=== PATIENT | male | born 1975 | race Caucasian/White ===

== ENCOUNTER 2017-10-22 12:32 | Emergency (ER) | payer BC ==
[2017-10-22 13:01] LABS: Appearance,Urine Clear (Clear); Bilirubin,Urine Negative (Negative); Blood,Urine Negative (Negative); Color,Urine Light Yellow; Glucose,Urine (UA) Negative (Negative); Ketones,Urine Negative (Negative); Leukocyte Esterase,Urine Negative (Negative); Nitrite,Urine Negative (Negative); Protein,Urine Negative (Negative); Specific Gravity,Urine 1.009 (1.001-1.035); Urobilinogen,Urine <2.0 mg/dL (<2.0)
[2017-10-22] MEDS ORDERED: SODIUM CHLORIDE 0.9% 1,000 ML IV STA (13:08)
[2017-10-22] MEDS ORDERED: KETOROLAC 30 MG/ML 1 ML VIAL IVP STA (13:08)
[2017-10-22] MEDS ORDERED: ONDANSETRON 4 MG/2 ML VIAL IVP STA (13:08)
--- NOTE | 2017-10-22 13:14 | ED ---
General Adult HPI <Daniel Chaves - Last Filed: 10/22/17 15:01> - General Source: patient, family, RN notes reviewed Mode of arrival: ambulatory Limitations: no limitations <Carmen Goldstein - Last Filed: 10/22/17 15:22> - General Chief complaint: Abdominal Pain Stated complaint: Abd Pain Time Seen by Provider: 10/22/17 12:52 - History of Present Illness Initial comments: 42-year-old male presents to the emergency department with a chief complaint of right-sided flank pain that radiated to the groin. This started on Wednesday. He saw his family care doctor Wednesday. She stated continue to watch it due to his long history of kidney stones however it seems to be continuing. He is nauseated there is been no vomiting. There's been no fever chills. She just continues to have the discomfort so he thought that he should be evaluated. He states he has had a little dysuria and frequency. He denies any blood in the urine. Patient denies any recent fever, chills, shortness of breath, chest pain , back pain, vomiting, numbness or tingling, constipation or diarrhea, headaches or visual changes, or any other current symptoms. (Carmen Goldstein) - Related Data Home Medications Medication Instructions Recorded Confirmed Allopurinol [Zyloprim] 100 mg PO DAILY 10/22/17 10/22/17 Teajobdrlk-VCM-Imcanqz-Codeine 1 cap PO Q4H PRN 10/22/17 10/22/17 [Fiorinal w/Cod 23-961-12-30MG] Calcitriol [Rocaltrol] 0.25 mcg PO MOWEFR 10/22/17 10/22/17 Diazepam [Valium] 5 mg PO BID 10/22/17 10/22/17 Ergocalciferol [Vitamin D2] 50,000 unit PO Q7D 10/22/17 10/22/17 Gemfibrozil [Lopid] 600 mg PO AC-BID 10/22/17 10/22/17 HYDROcodone/APAP 7.5-325MG [[place] 1 tab PO Q6HR PRN 10/22/17 10/22/17 7.5-325] Lisinopril [Zestril] 20 mg PO DAILY 10/22/17 10/22/17 Metoprolol Tartrate [Lopressor] 100 mg PO BID 10/22/17 10/22/17 Rosuvastatin [Crestor] 10 mg PO DAILY 10/22/17 10/22/17 Verapamil Sr [Isoptin Sr] 120 mg PO DAILY 10/22/17 10/22/17 Previous Rx's Medication Instructions Recorded Hydrocodone/Acetaminophen [[place] 1 each PO Q6HR PRN #20 tab 10/22/17 5-325] Ketorolac [Toradol] 10 mg PO Q6HR #20 tab 10/22/17 Ondansetron Odt [Zofran ODT] 4 mg PO Q8HR PRN #20 tab 10/22/17 Tamsulosin [Flomax] 0.4 mg PO DAILY #5 cap 10/22/17 Allergies Allergy/AdvReac Type Severity Reaction Status Date / Time loperamide [From Imodium A-D] AdvReac Vomiting Verified 10/22/17 13:12 Review of Systems ROS Other: All systems not noted in ROS Statement are negative. <Daniel Chaves - Last Filed: 10/22/17 15:01> ROS Other: All systems not noted in ROS Statement are negative. <Carmen Goldstein - Last Filed: 10/22/17 15:22> ROS Statement: Those systems with pertinent positive or pertinent negative responses have been documented in the HPI. Past Medical History Past Medical History: Myocardial Infarction ([place]) Additional Past Medical History / Comment(s): kindey stone, PCKD, migraines History of Any Multi-Drug Resistant Organisms: MRSA Date of last positivie culture/infection: 2015 MDRO Source:: right arm Additional Past Surgical History / Comment(s): vastectomy Past Psychological History: No Psychological Hx Reported Smoking Status: Former smoker Past Alcohol Use History: Occasional Past Drug Use History: None Reported <Carmen Goldstein - Last Filed: 10/22/17 15:22> General Exam <Daniel Chaves - Last Filed: 10/22/17 15:01> Limitations: no limitations <Carmen Goldstein - Last Filed: 10/22/17 15:22> - General Exam Comments Initial Comments: General: The patient is awake and alert, in no distress, and does not appear acutely ill. Eye: Pupils are equal, round. Ears, nose, mouth and throat: There are moist mucous membranes. Neck: The neck is supple, there is no tenderness. Cardiovascular: There is a regular rate and rhythm. No murmur, rub or gallop is appreciated. Respiratory: Lungs are clear to auscultation, respirations are non-labored, breath sounds are equal. No wheezes, stridor, rales, or rhonchi. Gastrointestinal: Soft, non-distended, non-tender abdomen without masses or organomegaly noted. There is no rebound or guarding present. No CVA tenderness. Bowel sounds are unremarkable. Back: There is no tenderness to palpation in the midline. There is no obvious deformity. No rashes noted. Musculoskeletal: Normal ROM, no tenderness, There is no pedal edema. There is no calf tenderness or swelling. Sensation intact. Pulses equal bilaterally 2+. Neurological: CN II-XII intact, There are no obvious motor or sensory deficits. Coordination appears grossly intact. Speech is normal. Skin: Skin is warm and dry and no rashes or lesions are noted. Psychiatric: Cooperative, appropriate mood & affect, normal judgment. (Carmen Goldstein) Course <Daniel Chaves - Last Filed: 10/22/17 15:01> <Carmen Goldstein - Last Filed: 10/22/17 15:22> Vital Signs 10/22/17 10/22/17 12:37 15:08 Temperature 98.0 F Pulse Rate 82 76 Respiratory 17 16 Rate Blood Pressure 151/80 119/76 O2 Sat by Pulse 98 96 Oximetry - Reevaluation(s) Reevaluation #1: 10/22/17 15:01 Patient reevaluated by myself, Dr. Chaves. Patient resting comfortably in bed. Patient does have mild tenderness right lower quadrant. Patient questions if he had a fever a few days ago. Patient is tolerating oral intake. Patient states symptoms do feel like previous kidney stone. Case was discussed in detail with Dr. Sarah, who was not concerned for appendicitis based on CT report. Case was also discussed with Dr. Rodriguez who did review computed tomography scan. He does recommend occasions for pain control and will follow- up on Wednesday. He does want urine to be strained. He does want Flomax given. Patient updated. (Daniel Chaves) Medical Decision Making - Lab Data Result diagrams: 10/22/17 13:15 10/22/17 13:15 <Daniel Chaves - Last Filed: 10/22/17 15:01> - Lab Data Result diagrams: 10/22/17 13:15 10/22/17 13:15 <Carmen Goldstein - Last Filed: 10/22/17 15:22> - Medical Decision Making 42-year-old male with a past medical history of kidney stones and polycystic kidney disease presents for right-sided flank pain that radiates into the groin. This time lab work is reviewed. At this time we discussed the case with Dr. Sarah and trena any they agree to outpatient follow-up. Patient has an appointment for Wednesday with Dr. Woods. We will start him on pain medicines and Flomax. We discussed treating the urine. It discuss return parameters all questions. He stated he understood he is given this plan. He will be discharged home. (Carmen Goldstein) - Lab Data Lab Results 10/22/17 10/22/17 10/22/17 Range/Units 12:40 13:15 13:15 WBC 7.7 (3.8-10.6) k/uL RBC 4.07 L (4.30-5.90) m/uL Hgb 12.6 L (13.0-17.5) gm/dL Hct 38.4 L (39.0-53.0) % MCV 94.3 (80.0-100.0) fL MCH 31.0 (25.0-35.0) pg MCHC 32.9 (31.0-37.0) g/dL RDW 14.1 (11.5-15.5) % Plt Count 202 (150-450) k/uL Neutrophils % 78 % Lymphocytes % 12 % Monocytes % 6 % Eosinophils % 2 % Basophils % 0 % Neutrophils # 6.0 (1.3-7.7) k/uL Lymphocytes # 1.0 (1.0-4.8) k/uL Monocytes # 0.4 (0-1.0) k/uL Eosinophils # 0.2 (0-0.7) k/uL Basophils # 0.0 (0-0.2) k/uL Sodium 137 (137-145) mmol/L Potassium 4.6 (3.5-5.1) mmol/L Chloride 100 (98-107) mmol/L Carbon Dioxide 25 (22-30) mmol/L Anion Gap 12 mmol/L BUN 34 H (9-20) mg/dL Creatinine 3.06 H (0.66-1.25) mg/dL Est GFR (MDRD) Af Amer 27 (>60 ml/min/1.73 sqM) Est GFR (MDRD) Non-Af 23 (>60 ml/min/1.73 sqM) Glucose 134 H (74-99) mg/dL Calcium 9.9 (8.4-10.2) mg/dL Total Bilirubin 0.3 (0.2-1.3) mg/dL AST 19 (17-59) U/L ALT 36 (21-72) U/L Alkaline Phosphatase 42 (38-126) U/L Total Protein 6.5 (6.3-8.2) g/dL Albumin 4.0 (3.5-5.0) g/dL Urine Color Light Yellow Urine Appearance Clear (Clear) Urine pH 6.0 (5.0-8.0) Ur Specific Ralls 1.009 (1.001-1.035) Urine Protein Negative (Negative) Urine Glucose (UA) Negative (Negative) Urine Ketones Negative (Negative) Urine Blood Negative (Negative) Urine Nitrite Negative (Negative) Urine Bilirubin Negative (Negative) Urine Urobilinogen <2.0 (<2.0) mg/dL Ur Leukocyte Esterase Negative (Negative) Disposition <Daniel Chaves - Last Filed: 10/22/17 15:01> Time of Disposition: 15:20 <Carmen Goldstein - Last Filed: 10/22/17 15:22> Clinical Impression: Right ureteral calculus, Polycystic kidney disease, Abdominal pain Disposition: HOME SELF-CARE Condition: Stable Instructions: Ureteral Stones (ED) Additional Instructions: Please use medication as discussed. Please follow up with family doctor if symptoms have not improved over the next two days. Please return to the emergency room if your symptoms increase or worsen or for any other concerns. Prescriptions: Hydrocodone/Acetaminophen [[place] 5-325] 1 each PO Q6HR PRN #20 tab PRN Reason: Pain Ketorolac [Toradol] 10 mg PO Q6HR #20 tab Ondansetron Odt [Zofran ODT] 4 mg PO Q8HR PRN #20 tab PRN Reason: Nausea Tamsulosin [Flomax] 0.4 mg PO DAILY #5 cap Referrals: Jamshid Perez MD [Primary Care Provider] - 1-2 days Quinton Capone MD [STAFF PHYSICIAN] - 1-2 days
[2017-10-22 13:28] LABS: Basophils % (A) 0 %; Eosinophils # (A) 0.2 k/uL (0-0.7); Eosinophils % (A) 2 %; HCT 38.4 % (39.0-53.0); HGB 12.6 gm/dL (13.0-17.5); Lymphocytes % (A) 12 %; MCHC 32.9 g/dL (31.0-37.0); MCV 94.3 fL (80.0-100.0); Mean Platelet Volume 7.2; Monocytes # (A) 0.4 k/uL (0-1.0); Monocytes % (A) 6 %; Neutrophils % (A) 78 %; Platelet Count 202 k/uL (150-450); RBC 4.07 m/uL (4.30-5.90); RDW 14.1 % (11.5-15.5); WBC 7.7 k/uL (3.8-10.6)
[2017-10-22 13:35] LABS: Calcium 9.9 mg/dL (8.4-10.2); Potassium 4.6 mmol/L (3.5-5.1); Total Bilirubin 0.3 mg/dL (0.2-1.3); Total Protein 6.5 g/dL (6.3-8.2)
--- NOTE | 2017-10-22 14:16 | CT ---
EXAMINATION TYPE: CT abdomen pelvis wo con DATE OF EXAM: 10/22/2017 COMPARISON: NONE HISTORY: Rt flank pain CT DLP: 1251.0 mGycm Automated exposure control for dose reduction was used. TECHNIQUE: Helical acquisition of images was performed from the lung bases through the pelvis. FINDINGS: LUNG BASES: Subsegmental linear changes are most atelectasis. LIVER/GB: Numerous hypodense lesions within the liver are indeterminate by noncontrast technique but likely related to cysts. PANCREAS: No significant abnormality is seen. SPLEEN: No significant abnormality is seen. ADRENALS: No significant abnormality is seen. KIDNEYS: The kidneys are enlarged bilaterally. There are numerous bilateral masses which are indeterm inate by noncontrast technique. Majority right may represent simple cysts, however, palpable are hype rdense which could represent hemorrhagic cyst. Solid neoplasm is not excluded. There are 3 less than 5 mm scattered calcifications involving the right kidney. Does appear to be mil d periureteral edema on the right and there is a 3 mm distal right ureteral calculus approximately 2 cm above the UVJ. FREE AIR: No free air is visualized URINARY BLADDER: No significant abnormality is seen. ADENOPATHY: None visualized. OSSEOUS STRUCTURES: Degenerative change of the spine noted. There is arthropathy of the hips. BOWEL: Appendix is air-filled and of normal caliber. There is a mild degree of inflammation within t he right lower quadrant which is felt to be more likely related to periureteral edema this is adjacen t to the appendix. Correlate clinically. Changes of diverticulosis of the colon seen.. OTHER: Aorta of normal caliber. IMPRESSION: 1. Kidneys are enlarged bilaterally with multiple indeterminate masses some of which are hyperdense l ikely the basis of polycystic kidney disease. Hyperdense and indeterminate lesions are noted in be co rrelated with ultrasound to exclude solid lesion. 2. There appears be mild right hydronephrosis secondary to a 3 mm distal right ureteral calculus. 3. There is edema within the right lower quadrant suggestive of inflammatory change is most likely is related to periureteral edema from the ureteral calculus but is directly in the region of the append ix. Appendix appears to be air-filled and of normal caliber and periureteral inflammatory changes fav ored over appendicitis but should be correlated clinically for confirmation.
[2017-10-22] MEDS ORDERED: HYDROmorphone 1 MG/ML 1 ML SYRINGE IVP STA (14:53)
[2017-10-22 15:08] VITALS: BP 119/76; PULSE 76; RESP 16
[2017-10-22 15:30] VITALS: TEMP 98.3
== END 2017-10-22 15:44 | disposition home or self-care (01) ==
LOC: EC 12:32
DX: N20.1 Calculus of ureter (principal); Q61.3 Polycystic kidney, unspecified; I25.2 Old myocardial infarction; Z86.14 Personal history of Methicillin resistant Staphylococcus aureus infection; Z87.891 Personal history of nicotine dependence; Z88.8 Allergy status to other drugs, medicaments and biological substances; Z79.899 Other long term (current) drug therapy
CPT/HCPCS: 36415; 80053; 85025; 81003; 87086; 74176; 99284; 96374; 96375 ×2; 96361; J2405; J1885; J1170

== ENCOUNTER → 2023-05-19 | Outpatient (CLI) | payer BC ==
--- NOTE | 2023-05-20 08:34 | MR ---
EXAMINATION TYPE: MR brain wo con DATE OF EXAM: 05/19/2023 COMPARISON: NONE HISTORY: 47-year-old male Z82.49, Family hx aneurysm, hx of kidney disease TECHNIQUE: Multiplanar, multisequence images of the brain and brainstem were acquired without IV con trast. Diffusion weighted imaging is performed. FINDINGS: No evidence for acute infarction, hemorrhage, mass, mass effect, midline shift, herniation, effacemen t of basal cisterns, or extra-axial fluid collection. There is moderate volume loss overlying the bilateral cerebral convexities. T2/FLAIR weighted sequences show no white matter signal abnormality. Major intracranial flow voids are intact. No apparent aneurysm wall assessing the flow voids. Assessm ent limited on this noncontrast, non-angiographic study. Midline structures demonstrate normal morphology. The craniocervical junction is normal. Mild mucosal thickening ethmoid air cells. Globes are intact. IMPRESSION: Moderate cerebral cortical atrophy. Otherwise, no specific abnormality seen. If persistent concern fo r intracranial aneurysm, consider MR angiography [place]. Mild chronic ethmoid sinus disease.
== END | disposition home or self-care (01) ==
LOC: RADMRIMAIN 06:57
PROVIDERS: ATTEND Internal Medicine Nephrology
DX: N26.1 Atrophy of kidney (terminal) (principal); J32.2 Chronic ethmoidal sinusitis; Z82.49 Family history of ischemic heart disease and other diseases of the circulatory system
CPT/HCPCS: 70551

== ENCOUNTER 2025-04-25 12:23 | Inpatient (IN) | payer BC ==
--- NOTE | 2025-04-25 12:52 | ED ---
General Adult HPI - General Chief complaint: Abdominal Pain Stated complaint: Transfer/Diverticulitis Time Seen by Provider: 04/25/25 12:27 Source: patient, EMS Mode of arrival: EMS Limitations: no limitations - History of Present Illness Initial comments: Dictation was produced using upad dictation software. please excuse any grammatical, word or spelling errors. Chief Complaint: 49-year-old male with CKD presents to the ER for diverticulitis History of Present Illness: Patient is a 49-year-old male with history of CKD. He has elevated renal function working with nephrology. Patient states he will be starting peritoneal dialysis soon. Has been having abdominal pain for the last couple days. Went to [place] emergency department where he had CT performed showing diverticulitis with microperforations. Transferred. States that he feels a little sore to his lower abdomen. Denies any fever or constitutional symptoms. The ROS documented in this emergency department record has been reviewed and confirmed by me. Those systems with pertinent positive or negative responses have been documented in the HPI. All other systems are other negative and/or noncontributory. - Related Data Home Medications Medication Instructions Recorded Confirmed Tnxgjfgcgm-FEH-Vxxpbnx-Codeine 1 cap PO Q4H PRN 10/22/17 10/22/17 [Fiorinal w/Cod 82-167-98-30MG] Ergocalciferol [Vitamin D2] 50,000 unit PO Q7D 10/22/17 10/22/17 HYDROcodone/APAP 7.5-325MG [[place] 1 tab PO Q6HR PRN 10/22/17 10/22/17 7.5-325] Metoprolol Tartrate [Lopressor] 100 mg PO BID 10/22/17 10/22/17 Rosuvastatin [Crestor] 10 mg PO DAILY 10/22/17 10/22/17 Verapamil Sr [Isoptin Sr] 120 mg PO DAILY 10/22/17 10/22/17 allopurinoL [Zyloprim] 100 mg PO DAILY 10/22/17 10/22/17 calcitrioL [Rocaltrol] 0.25 mcg PO MOWEFR 10/22/17 10/22/17 diazePAM [Valium] 5 mg PO BID 10/22/17 10/22/17 gemfibroziL [Lopid] 600 mg PO AC-BID 10/22/17 10/22/17 lisinopriL [Zestril] 20 mg PO DAILY 10/22/17 10/22/17 Previous Rx's Medication Instructions Recorded Hydrocodone/Acetaminophen [[place] 1 each PO Q6HR PRN #20 tab 10/22/17 5-325] Ketorolac [Toradol] 10 mg PO Q6HR #20 tab 10/22/17 Ondansetron Odt [Zofran ODT] 4 mg PO Q8HR PRN #20 tab 10/22/17 Tamsulosin [Flomax] 0.4 mg PO DAILY #5 cap 10/22/17 Allergies Allergy/AdvReac Type Severity Reaction Status Date / Time loperamide [From Imodium A-D] AdvReac Vomiting Verified 10/22/17 13:12 Review of Systems ROS Statement: Those systems with pertinent positive or pertinent negative responses have been documented in the HPI. ROS Other: All systems not noted in ROS Statement are negative. Past Medical History Past Medical History: Myocardial Infarction ([place]) Additional Past Medical History / Comment(s): kindey stone, PCKD, migraines History of Any Multi-Drug Resistant Organisms: MRSA Date of last positivie culture/infection: 2015 MDRO Source:: right arm Additional Past Surgical History / Comment(s): vastectomy Past Psychological History: No Psychological Hx Reported Past Alcohol Use History: Occasional Past Drug Use History: None Reported General Exam - General Exam Comments Initial Comments: PHYSICAL EXAM: General Impression: Alert and oriented x3, not in acute distress HEENT: Normocephalic atraumatic, extra-ocular movements intact, pupils equal and reactive to light bilaterally, mucous membranes moist. Cardiovascular: Heart regular rate and rhythm Chest: Able to complete full sentences, no retractions, no tachypnea Abdomen: abdomen soft, non-tender, non-distended, no organomegaly Musculoskeletal: Pulses present and equal in all extremities, no peripheral edema Motor: no focal deficits noted Neurological: CN II-XII grossly intact, no focal motor or sensory deficits noted Skin: Intact with no visualized rashes Psych: Normal affect and mood Limitations: no limitations Course Vital Signs 04/25/25 12:25 Temperature 98.4 F Pulse Rate 85 Respiratory 18 Rate Blood Pressure 152/92 O2 Sat by Pulse 98 Oximetry Medical Decision Making - Medical Decision Making Was pt. sent in by a medical professional or institution (, PA, CASTING HOUSE WORKER, urgent care, hospital, or penitentiary...) When possible be specific @ -Sent as a transfer from [facility] Did you speak to anyone other than the patient for history (EMS, parent, family, police, friend...)? What history was obtained from this source @ -Spoke with transferring physician Did you review nursing and triage notes (agree or disagree)? Why? @ -I reviewed and agree with nursing and triage notes Were old charts reviewed (outside hosp., previous admission, EMS record, old EKG, old radiological studies, urgent care reports/EKG's, penitentiary records)? Report findings @ -No old charts were reviewed Differential Diagnosis (chest pain, altered mental status, abdominal pain women, abdominal pain men, vaginal bleeding, musculoskeletal, weakness, fever, dyspnea, syncope, headache, dizziness, GI bleed, back pain, seizure, CVA, palpatations, mental health)? @ -Differential Abdominal Pain Men: Appendicitis, cholecystitis, diverticulosis, ischemic bowel, pancreatitis, hepatitis, UTI, gastroenteritis, AAA, incarcerated hernia, bowel obstruction, constipation, inflammatory bowel, hepatitis, peptic ulcer disease, splenic infarction, perforated viscus, testicular torsion, this is not meant to be an all-inclusive list EKG interpreted by me (3pts min.). @ -None done X-rays interpreted by me (1pt min.). @ -None done CT interpreted by me (1pt min.). @ -None done U/S interpreted by me (1pt. min.). @ -None done What testing was considered but not performed or refused? (CT, X-rays, U/S, labs)? Why? @ -None What meds were considered but not given or refused? Why? @ -None Was smoking cessation discussed for >3mins.? @ -No Were there social determinants of health that impacted care today? How? (Homelessness, low income, unemployed, alcoholism, drug addiction, transportation, low edu. Level, literacy, decrease access to med. care, assisted, rehab)? @ -No Was there de-escalation of care discussed even if they declined (Discuss DNR or withdrawal of care, Hospice)? DNR status @ -No What co-morbidities impacted this encounter? (DM, HTN, Smoking, COPD, CAD, Cancer, CVA, ARF, Chemo, Hep., AIDS, mental health diagnosis, sleep apnea, morbid obesity)? @ -CKD Was patient admitted / discharged? Hospital course, mention meds given and route, prescriptions, significant lab abnormalities, going to OR and other pertinent info. @ -49-year-old male presents to the emergency department for diverticulitis and CKD. Patient was seen at [facility] where he was evaluated for abdominal pain. Found to have a elevated creatinine and BUN. He has has have history of CKD secondary to polycystic kidneys. CT was performed showing diverticulitis with microperforations. Patient had elevated white count of 16. Patient was not given antibiotics prior to transfer due to documented concerns of making kidney function worse. Patient given Zosyn. Will be admitted consultation to nephrology. Did you discuss the management of the patient with other professionals (professionals i.e. , PA, CASTING HOUSE WORKER, lab, RT, psych nurse, aids social worker, brick chimney builder, teacher, environmental compliance officer, correctional case manager)? Give summary @ -See above. Spoke with general surgery on-call, About request patient be admitted to medicine with consultation to general surgery. Spoke with hospitalist for admission Was critical care preformed (if so, how long)? @ -No Undiagnosed new problem with uncertain prognosis? @ -No Drug Therapy requiring intensive monitoring for toxicity (Heparin, Nitro, Insulin, Cardizem)? @ -No Were any procedures done? @ -No Diagnosis/symptom? Acute, or Chronic, or Acute on Chronic? Uncomplicated (without systemic symptoms) or Complicated (systemic symptoms)? @ -Diverticulitis Side effects of treatment? @ -No Exacerbation, Progression, or Severe Exacerbation? @ -No Poses a threat to life or bodily function? How? (Chest pain, [place], [place], pneumonia, PE, COPD, DKA, ARF, appy, cholecystitis, CVA, Diverticulitis, Homicidal, Suicidal, threat to staff... and all critical care pts) @ -yes Disposition Clinical Impression: Acute diverticulitis Disposition: ADMITTED IP TO THIS HOSP Condition: Fair Referrals: Jamshid Preez MD [Primary Care Provider] - 1-2 days Decision Time: 12:52
[2025-04-25] MEDS ORDERED: NALOXONE 0.4 MG/ML 1 ML VIAL IV PRN (13:05)
[2025-04-25] MEDS: SODIUM CHLORIDE 0.9% 1,000 ML IV SCH (13:21)
[2025-04-25] MEDS: SODIUM CHLORIDE 0.9% 1,000 ML IV STA (13:21)
[2025-04-25] MEDS: PIPERACILLIN-TAZOBACTAM 3.375 GM in SODIUM CHLORIDE 0.9% 100 ML IVPB STA (13:22)
[2025-04-25] MEDS: HYDROmorphone 1 MG/ML 1 ML SYRINGE IVP PRN (13:43)
[2025-04-25] MEDS: PANTOPRAZOLE 40 MG/10 ML VIAL IV SCH (13:43)
[2025-04-25] MEDS ORDERED: diazePAM 5 MG TAB PO PRN (15:15)
[2025-04-25] MEDS ORDERED: ALBUTEROL HFA INHALER INHALATION PRN (15:15)
[2025-04-25] MEDS ORDERED: ALBUTEROL NEBULIZED 2.5 MG/3 ML INHALATION PRN (15:15)
[2025-04-25] MEDS: amLODIPine 5 MG TAB PO SCH (15:49)
[2025-04-25] MEDS: PANTOPRAZOLE 40 MG TABLET PO SCH (15:49)
[2025-04-25] MEDS: FENOFIBRATE 160 MG TAB PO SCH (15:49)
[2025-04-25] MEDS: ASPIRIN 81 MG PO SCH (15:49)
[2025-04-25] MEDS: ENOXAPARIN 40 MG/0.4 ML SYRINGE SQ SCH (15:51)
[2025-04-25 16:03] LABS: Basophils # (A) 0.01 10*3/uL (0.00-0.10); Basophils % (A) 0.1 %; Eosinophils # (A) 0.00 10*3/uL (0.04-0.35); Eosinophils % (A) 0.0 %; HCT 38.7 % (39.6-50.0); HGB 12.5 g/dL (13.0-17.0); Lymphocytes # (A) 0.54 10*3/uL (0.90-5.00); Lymphocytes % (A) 3.6 %; MCH 30.7 pg (27.0-32.0); MCHC 32.3 g/dL (32.0-37.0); MCV 95.1 fL (80.0-97.0); Monocytes # (A) 1.18 10*3/uL (0.20-1.00); Monocytes % (A) 7.8 %; Neutrophils # (A) 13.24 10*3/uL (1.80-7.70); Neutrophils % (A) 88.0 %; Platelet Count 216 10*3/uL (140-440); RBC 4.07 10*6/uL (4.40-5.60); RDW 14.3 % (11.5-14.5); WBC 15.05 10*3/uL (4.50-10.00)
[2025-04-25 16:17] LABS: INR 1.1 (<1.2); Partial Thromboplastin Time 24.4 sec (22.0-30.0); Prothrombin Time 11.6 sec (10.0-12.5)
[2025-04-25 16:21] LABS: African American GFR (CKD) 16 (>60 ml/min/1.73 sqM); Anion Gap 10 mmol/L; Blood Urea Nitrogen 77 mg/dL (9-20); Calcium 8.7 mg/dL (8.4-10.2); Carbon Dioxide 16 mmol/L (22-30); Chloride 109 mmol/L (98-107); Glucose 103 mg/dL (74-99); Non-African American GFR(CKD) 14 (>60 ml/min/1.73 sqM); Potassium 5.6 mmol/L (3.5-5.1); Sodium 135 mmol/L (137-145)
[2025-04-25] MEDS: NON FORMULARY DRUG (Icosapent Ethyl [Icosapent Ethyl] 1 GM Capsule) PO SCH (17:55)
[2025-04-25] MEDS: PIPERACILLIN-TAZOBACTAM 3.375 GM in SODIUM CHLORIDE 0.9% 100 ML IVPB SCH (20:12)
--- NOTE | 2025-04-25 20:49 | P.HPIM ---
History of Present Illness H&P Date: 04/25/25 Chief Complaint: Abdominal pain Pleasant 49-year-old patient who follows with Gem García NP. Chronic medical conditions include polycystic kidney disease, kidney stones, gout, GERD, COPD, hypertension possible [place] in the remote past. For about 2 weeks patient been having abdominal pain left lower quadrant. Slowly getting worse. Finally decided to come in to [facility]. CT scan of the abdomen showed sigmoid colitis with microperforation and scattered foci of air. No abscess. He was transferred down here for surgical overview. Patient thinks that 2 episodes of diverticulitis possibly 5 to 6 years ago. Normally has a bowel movement every day. A bowel movement also was had yesterday. Has been having some nausea vomiting. No fever no chills. General surgery nephrology was consulted. 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 Lives with his 2 sons. Smoked for about 25 years stopped about 11 years ago. Physical examination: VITAL SIGNS: 100.1, 86, 19, 145 x 72, 94% room air GENERAL: BMI 40.7, laying in bed awake not in distress. EYES: Pupils equal. Conjunctiva guillermina l. HEENT: External appearance of nose and ears normal, oral cavity grossly normal. NECK: JVD unable to assess masses not palpable. HEART: First and second heart sounds are normal; no edema. LUNGS: Respiratory rate normal; decreased breath sounds n. ABDOMEN: Soft, left lower quadrant tenderness, no guarding rigidity liver spleen not palpable, no masses palpable. PSYCH: Alert and oriented x3; mood and affect guillermina l. MUSCULOSKELETAL:No Clubbing/cyanosis;muscles-grossly intact NEUROLOGICAL: Cranial nerves grossly intact; no facial asymmetry, power and sensation grossly intact. LYMPHATICS: No lymph nodes palpable in the axilla and neck INVESTIGATIONS, reviewed in the clinical context: April 25, 2025: White count 15.0 hemoglobin 12.5 platelets 216 sodium 135 potassium 5.6 BUN [address] scan abdomen pelvis done at [facility]: Sigmoid colitis with microperforation. Scattered foci of air. No abscess. Assessment plan: - Acute diverticulitis with microperforation and scattered foci of air. No abscess. Symptoms have been progressive for 2 weeks. Patient is n.p.o. except for ice chips. IV fluids. IV Zosyn. General surgery consulted - Essential hypertension associated with polycystic kidney disease Amlodipine. Coreg. - Chronic kidney disease stage IV from underlying polycystic kidney disease Consult nephrology - Hyperlipidemia Repatha - Chronic hyperuricemia/gout Allopurinol - Morbid obesity BMI 40.7 Weight loss measures - COPD now ex-smoker Spiriva 1 puff a day albuterol as needed - GERD PPI - Full code Care was discussed with patient. Questions answered Past Medical History Past Medical History: Myocardial Infarction ([place]) Additional Past Medical History / Comment(s): kindey stone, PCKD, migraines Last Myocardial Infarction Date:: na History of Any Multi-Drug Resistant Organisms: MRSA Date of last positivie culture/infection: 2015 MDRO Source:: right arm Additional Past Surgical History / Comment(s): vastectomy Past Psychological History: No Psychological Hx Reported Smoking Status: Never smoker Past Alcohol Use History: Occasional Past Drug Use History: None Reported Medications and Allergies Home Medications Medication Instructions Recorded Confirmed Type Xpsjjyckja-VCR-Jqcgfsx-Codeine 1 cap PO Q8H PRN 10/22/17 04/25/25 History [Fiorinal w/Cod 44-425-74-30MG] allopurinoL [Zyloprim] 200 mg PO DAILY 10/22/17 04/25/25 History calcitrioL [Rocaltrol] 0.25 mcg PO BID 10/22/17 04/25/25 History diazePAM [Valium] 5 mg PO BID PRN 10/22/17 04/25/25 History Albuterol Nebulized [Ventolin 2.5 mg INHALATION RT-Q6H PRN 04/25/25 04/25/25 History Nebulized] Albuterol Sulfate [Albuterol 2 puff INHALATION RT-Q6H PRN 04/25/25 04/25/25 History Sulfate Hfa] Aspirin EC [Ecotrin Low Dose] 81 mg PO DAILY 04/25/25 04/25/25 History Cholecalciferol [Vitamin D3 (25 25 mcg PO DAILY 04/25/25 04/25/25 History Mcg = 1000 Iu)] Esomeprazole Magnesium [NexIUM 20 mg PO DAILY 04/25/25 04/25/25 History 24Hr] Evolocumab [Repatha Sureclick] 140 mg SQ Q14D 04/25/25 04/25/25 History Fenofibric Acid (Choline) 135 mg PO DAILY 04/25/25 04/25/25 History [Fenofibric Acid] Tiotropium 18 Mcg/Puff [Spiriva] 1 puff INHALATION RT-DAILY 04/25/25 04/25/25 History amLODIPine [Norvasc] 5 mg PO DAILY 04/25/25 04/25/25 History carvediloL [Coreg] 25 mg PO BID 04/25/25 04/25/25 History icosapent ethyL [Icosapent Ethyl] 2 gm PO BID-W/MEALS 04/25/25 04/25/25 History Allergies Allergy/AdvReac Type Severity Reaction Status Date / Time loperamide [From Imodium A-D] AdvReac Vomiting Verified 04/25/25 13:58 Physical Exam Vitals: Vital Signs Temp Pulse Pulse Resp BP BP Pulse Ox 04/25/25 19:29 98.2 F 86 19 145/72 94 L 04/25/25 16:45 126/80 04/25/25 14:40 100.1 F H 91 18 183/106 98 04/25/25 14:29 91 15 129/95 97 04/25/25 12:25 98.4 F 85 18 152/92 98 Intake and Output 04/25/25 04/25/25 04/25/25 06:59 14:59 22:59 Other: Weight 136.078 kg 136.078 kg Results CBC & Chem 7: 04/25/25 13:08 04/25/25 13:08 Labs: Abnormal Lab Results - Last 24 Hours (Table) 04/25/25 04/25/25 Range/Units 13:08 13:08 WBC 15.05 H (4.50-10.00) 10*3/uL RBC 4.07 L (4.40-5.60) 10*6/uL Hgb 12.5 L (13.0-17.0) g/dL Hct 38.7 L (39.6-50.0) % MPV 9.4 L (9.5-12.2) fL Immature Gran # 0.08 H (0.00-0.04) 10*3/uL Neutrophils # 13.24 H (1.80-7.70) 10*3/uL Lymphocytes # 0.54 L (0.90-5.00) 10*3/uL Monocytes # 1.18 H (0.20-1.00) 10*3/uL Eosinophils # 0.00 L (0.04-0.35) 10*3/uL Sodium 135 L (137-145) mmol/L Potassium 5.6 H (3.5-5.1) mmol/L Chloride 109 H (98-107) mmol/L Carbon Dioxide 16 L (22-30) mmol/L BUN 77 H (9-20) mg/dL Creatinine 4.68 H (0.66-1.25) mg/dL Glucose 103 H (74-99) mg/dL Thrombosis Risk Factor Assmnt - Choose All That Apply Any of the Below Risk Factors Present?: Yes Each Factor Represents 1 point: Age 41-60 years Other Risk Factors: No Thrombosis Risk Factor Assessment Total Risk Factor Score: 1 Thrombosis Risk Factor Assessment Level: Low Risk
[2025-04-26 04:55] LABS: Basophils # (A) 0.01 10*3/uL (0.00-0.10); Basophils % (A) 0.1 %; Eosinophils # (A) 0.00 10*3/uL (0.04-0.35); Eosinophils % (A) 0.0 %; HCT 36.9 % (39.6-50.0); HGB 11.4 g/dL (13.0-17.0); Lymphocytes # (A) 0.36 10*3/uL (0.90-5.00); Lymphocytes % (A) 3.0 %; MCH 30.3 pg (27.0-32.0); MCHC 30.9 g/dL (32.0-37.0); MCV 98.1 fL (80.0-97.0); Monocytes # (A) 0.58 10*3/uL (0.20-1.00); Monocytes % (A) 4.9 %; Neutrophils # (A) 10.91 10*3/uL (1.80-7.70); Neutrophils % (A) 91.7 %; Platelet Count 173 10*3/uL (140-440); RBC 3.76 10*6/uL (4.40-5.60); RDW 14.5 % (11.5-14.5); WBC 11.90 10*3/uL (4.50-10.00)
[2025-04-26 05:46] LABS: African American GFR (CKD) 12 (>60 ml/min/1.73 sqM); Anion Gap 15 mmol/L; Blood Urea Nitrogen 82 mg/dL (9-20); Calcium 8.6 mg/dL (8.4-10.2); Carbon Dioxide 15 mmol/L (22-30); Chloride 107 mmol/L (98-107); Glucose 100 mg/dL (74-99); Non-African American GFR(CKD) 10 (>60 ml/min/1.73 sqM); Potassium 5.9 mmol/L (3.5-5.1); Sodium 137 mmol/L (137-145)
[2025-04-26] MEDS: TIOTROPIUM 2.5 MCG INHALER INHALATION SCH (09:45)
[2025-04-26] MEDS: CHOLECALCIFEROL 25 MCG (1000 IU) TABLET PO SCH (10:44)
[2025-04-26] MEDS: ACETAMINOPHEN TAB 325 MG TAB PO PRN (10:48)
[2025-04-26] MEDS: SODIUM ZIRCONIUM CYCLOSILICATE 10 GM PACKET PO ONE (10:52)
[2025-04-26] MEDS: DEXTROSE 5% IN WATER 1,000 ML with SODIUM BICARB (1 MEQ/ML) 150 ML IV SCH (11:01)
--- NOTE | 2025-04-26 11:26 | P.NPCON ---
History of Present Illness - Reason for Consult chronic renal failure - History of Present Illness Patient is a 49-year-old male with history of chronic kidney disease stage V secondary to polycystic kidney disease with baseline creatinine around 4 -5 mg/dL. He is admitted to the hospital as a transfer from [facility] where he presented with complaints of abdominal pain mostly in the left lower quadrant. Patient had also complained of back pain and was recently placed on prednisone. He had some loose bowel movements but denied any fever. Patient also complained nausea and vomiting. No changes in urine output CT scan showed evidence of sigmoid colitis at [facility]. Currently maintained on IV fluids and IV antibiotics and patient states he is feeling better. No significant hypotension noted. Serum creatinine was 4.6 yesterday and is 5.9 today. Potassium is elevated at 5.9. Past Medical History Past Medical History: Myocardial Infarction ([place]) Additional Past Medical History / Comment(s): kindey stone, PCKD, migraines Last Myocardial Infarction Date:: na History of Any Multi-Drug Resistant Organisms: MRSA Date of last positivie culture/infection: 2015 MDRO Source:: right arm Additional Past Surgical History / Comment(s): vastectomy Past Psychological History: No Psychological Hx Reported Smoking Status: Never smoker Past Alcohol Use History: Occasional Past Drug Use History: None Reported Medications and Allergies Home Medications Medication Instructions Recorded Confirmed Type Mdmcbnmlec-OYA-Yiparcp-Codeine 1 cap PO Q8H PRN 10/22/17 04/25/25 History [Fiorinal w/Cod 74-642-42-30MG] allopurinoL [Zyloprim] 200 mg PO DAILY 10/22/17 04/25/25 History calcitrioL [Rocaltrol] 0.25 mcg PO BID 10/22/17 04/25/25 History diazePAM [Valium] 5 mg PO BID PRN 10/22/17 04/25/25 History Albuterol Nebulized [Ventolin 2.5 mg INHALATION RT-Q6H PRN 04/25/25 04/25/25 History Nebulized] Albuterol Sulfate [Albuterol 2 puff INHALATION RT-Q6H PRN 04/25/25 04/25/25 History Sulfate Hfa] Aspirin EC [Ecotrin Low Dose] 81 mg PO DAILY 04/25/25 04/25/25 History Cholecalciferol [Vitamin D3 (25 25 mcg PO DAILY 04/25/25 04/25/25 History Mcg = 1000 Iu)] Esomeprazole Magnesium [NexIUM 20 mg PO DAILY 04/25/25 04/25/25 History 24Hr] Evolocumab [Repatha Sureclick] 140 mg SQ Q14D 04/25/25 04/25/25 History Fenofibric Acid (Choline) 135 mg PO DAILY 04/25/25 04/25/25 History [Fenofibric Acid] Tiotropium 18 Mcg/Puff [Spiriva] 1 puff INHALATION RT-DAILY 04/25/25 04/25/25 History amLODIPine [Norvasc] 5 mg PO DAILY 04/25/25 04/25/25 History carvediloL [Coreg] 25 mg PO BID 04/25/25 04/25/25 History icosapent ethyL [Icosapent Ethyl] 2 gm PO BID-W/MEALS 04/25/25 04/25/25 History Allergies Allergy/AdvReac Type Severity Reaction Status Date / Time loperamide [From Imodium A-D] AdvReac Vomiting Verified 04/25/25 13:58 Physical Exam Vitals: Vital Signs Temp Pulse Pulse Resp BP BP Pulse Ox 04/26/25 07:39 97.8 F 80 18 112/73 94 L 04/26/25 01:57 97.7 F 84 18 141/73 95 04/25/25 19:29 98.2 F 86 19 145/72 94 L 04/25/25 16:45 126/80 04/25/25 14:40 100.1 F H 91 18 183/106 98 04/25/25 14:29 91 15 129/95 97 04/25/25 12:25 98.4 F 85 18 152/92 98 Intake and Output 04/25/25 04/26/25 04/26/25 22:59 06:59 14:59 Other: # Voids 2 Weight 136.078 kg Patient is awake, comfortable, no acute distress alert oriented x 3 Examination of the heart S1 and S2 Examination of the lungs bilateral breath sounds are heard Abdomen is soft obese with tenderness in the left lower quadrant Examination of lower extremities shows no significant edema, chronic skin changes 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 Acute kidney injury, prerenal associated with volume depletion and underlying infection. Currently maintained on IV fluids. 2. Hyperkalemia associated with acute kidney injury 3. Chronic kidney disease stage V. Baseline creatinine around 4 to 5 mg/dL. Patient has had education regarding renal replacement therapy and he will be doing PD down the road. 4. [place] metabolic acidosis secondary to renal failure 5. Hypertension with CKD stage V 6. Sigmoid colitis, maintained on antibiotics and general surgery on consult. Plan: Continue with IV fluids Changed to IV bicarb Repeat labs in a.m. Lokelma x 1 Expect improvement in potassium with correction of acidosis Continue with antibiotics No acute indication for starting renal replacement therapy. Thank you for the consultation. We will continue to follow the patient with you during his hospitalization.
[2025-04-26] MEDS: PIPERACILLIN-TAZOBACTAM 3.375 GM in SODIUM CHLORIDE 0.9% 100 ML IVPB SCH (15:02)
--- NOTE | 2025-04-26 16:58 | P.GSCN ---
History of Present Illness Consult date: 04/26/25 Reason for Consult: Diverticulitis History of present illness: 49-year-old male has a history of diverticulitis. Has been on antibiotics 1-2 t imes previously. Last episode however 5 years ago. Had lower abdominal pain. Went to the ER and had a CAT scan showing sigmoid diverticulitis with a few small pericolonic air bubbles noted. Has had normal bowel function. Some nausea and vomiting. History of polycystic kidney disease. Not on dialysis currently. Was told in the past he should have a colonoscopy and this was not performed yet. Denies rectal bleeding. Review of Systems The patient denies any acute changes in vision or hearing, no dysphagia or odynophagia, no chest pain or shortness of breath, no dysuria or hematuria, no headache, no runny nose, no rectal bleeding or melena, no unexplained weight loss Past Medical History Past Medical History: Myocardial Infarction ([place]) Additional Past Medical History / Comment(s): kindey stone, PCKD, migraines Last Myocardial Infarction Date:: na History of Any Multi-Drug Resistant Organisms: MRSA Year Discovered:: 2016 MDRO Source:: right arm Additional Past Surgical History / Comment(s): vastectomy Past Psychological History: No Psychological Hx Reported Smoking Status: Never smoker Past Alcohol Use History: Occasional Past Drug Use History: None Reported Medications and Allergies Home Medications Medication Instructions Recorded Confirmed Type Fitejgzemo-WIP-Gjooyls-Codeine 1 cap PO Q8H PRN 10/22/17 04/25/25 History [Fiorinal w/Cod 30-423-18-30MG] allopurinoL [Zyloprim] 200 mg PO DAILY 10/22/17 04/25/25 History calcitrioL [Rocaltrol] 0.25 mcg PO BID 10/22/17 04/25/25 History diazePAM [Valium] 5 mg PO BID PRN 10/22/17 04/25/25 History Albuterol Nebulized [Ventolin 2.5 mg INHALATION RT-Q6H PRN 04/25/25 04/25/25 History Nebulized] Albuterol Sulfate [Albuterol 2 puff INHALATION RT-Q6H PRN 04/25/25 04/25/25 History Sulfate Hfa] Aspirin EC [Ecotrin Low Dose] 81 mg PO DAILY 04/25/25 04/25/25 History Cholecalciferol [Vitamin D3 (25 25 mcg PO DAILY 04/25/25 04/25/25 History Mcg = 1000 Iu)] Esomeprazole Magnesium [NexIUM 20 mg PO DAILY 04/25/25 04/25/25 History 24Hr] Evolocumab [Repatha Sureclick] 140 mg SQ Q14D 04/25/25 04/25/25 History Fenofibric Acid (Choline) 135 mg PO DAILY 04/25/25 04/25/25 History [Fenofibric Acid] Tiotropium 18 Mcg/Puff [Spiriva] 1 puff INHALATION RT-DAILY 04/25/25 04/25/25 History amLODIPine [Norvasc] 5 mg PO DAILY 04/25/25 04/25/25 History carvediloL [Coreg] 25 mg PO BID 04/25/25 04/25/25 History icosapent ethyL [Icosapent Ethyl] 2 gm PO BID-W/MEALS 04/25/25 04/25/25 History Allergies Allergy/AdvReac Type Severity Reaction Status Date / Time loperamide [From Imodium A-D] AdvReac Vomiting Verified 04/25/25 13:58 Surgical - Exam Vital Signs Temp Pulse Resp BP Pulse Ox 98.4 F 85 18 152/92 98 04/25/25 12:25 04/25/25 12:25 04/25/25 12:25 04/25/25 12:25 04/25/25 12:25 Physical exam: General: Well-developed, well-nourished HEENT: Normocephalic, sclerae nonicteric Abdomen: Mild distention, mild left lower quadrant and suprapubic tenderness, no rebound or guarding Extremities: No edema Neuro: Alert and oriented Results - Labs 04/26/25 03:48 04/26/25 03:48 Abnormal Lab Results - Last 24 Hours (Table) 04/26/25 04/26/25 Range/Units 03:48 03:48 WBC 11.90 H (4.50-10.00) 10*3/uL RBC 3.76 L (4.40-5.60) 10*6/uL Hgb 11.4 L (13.0-17.0) g/dL Hct 36.9 L (39.6-50.0) % MCV 98.1 H (80.0-97.0) fL MCHC 30.9 L (32.0-37.0) g/dL MPV 9.1 L (9.5-12.2) fL Neutrophils # 10.91 H (1.80-7.70) 10*3/uL Lymphocytes # 0.36 L (0.90-5.00) 10*3/uL Eosinophils # 0.00 L (0.04-0.35) 10*3/uL Potassium 5.9 H (3.5-5.1) mmol/L Carbon Dioxide 15 L (22-30) mmol/L BUN 82 H (9-20) mg/dL Creatinine 5.97 H (0.66-1.25) mg/dL Glucose 100 H (74-99) mg/dL Diabetes panel 04/26/25 Range/Units 03:48 Sodium 137 (137-145) mmol/L Potassium 5.9 H (3.5-5.1) mmol/L Chloride 107 (98-107) mmol/L Carbon Dioxide 15 L (22-30) mmol/L BUN 82 H (9-20) mg/dL Creatinine 5.97 H (0.66-1.25) mg/dL Glucose 100 H (74-99) mg/dL Calcium 8.6 (8.4-10.2) mg/dL Calcium panel 04/26/25 Range/Units 03:48 Calcium 8.6 (8.4-10.2) mg/dL Pituitary panel 04/26/25 Range/Units 03:48 Sodium 137 (137-145) mmol/L Potassium 5.9 H (3.5-5.1) mmol/L Chloride 107 (98-107) mmol/L Carbon Dioxide 15 L (22-30) mmol/L BUN 82 H (9-20) mg/dL Creatinine 5.97 H (0.66-1.25) mg/dL Glucose 100 H (74-99) mg/dL Calcium 8.6 (8.4-10.2) mg/dL Adrenal panel 04/26/25 Range/Units 03:48 Sodium 137 (137-145) mmol/L Potassium 5.9 H (3.5-5.1) mmol/L Chloride 107 (98-107) mmol/L Carbon Dioxide 15 L (22-30) mmol/L BUN 82 H (9-20) mg/dL Creatinine 5.97 H (0.66-1.25) mg/dL Glucose 100 H (74-99) mg/dL Calcium 8.6 (8.4-10.2) mg/dL Assessment and Plan (1) Acute diverticulitis Narrative/Plan: 49-year-old male with acute sigmoid diverticulitis. Continue antibiotics. Resume liquid diet. Recheck labs tomorrow. Will follow. Current Visit: Yes Status: Acute Code(s): K57.92 - DVTRCLI OF INTEST, PART UNSP, W/O PERF OR ABSCESS W/O BLEED SNOMED Code(s): 467197290
--- NOTE | 2025-04-26 17:59 | P.PN ---
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 Chronic medical conditions include polycystic kidney disease, kidney stones, gout, GERD, COPD, hypertension possible [place] in the remote past. For about 2 weeks patient been having abdominal pain left lower quadrant. Slowly getting worse. Finally decided to come in to [facility]. CT scan of the abdomen showed sigmoid colitis with microperforation and scattered foci of air. No abscess. He was transferred down here for surgical overview. Patient thinks that 2 episodes of diverticulitis possibly 5 to 6 years ago. Normally has a bowel movement every day. A bowel movement also was had yesterday. Has been having some nausea vomiting. No fever no chills. General surgery nephrology was consulted. April 26: Still having abdominal pain. Getting ice chips.. Per surgery advance to clear liquids at night. Getting IV Zosyn. Put on IV sodium bicarbonate drip with nephrology. Worsening renal function. Nephrology is following. Given Lokelma for increased potassium by nephrology. Active Medications Acetaminophen (Acetaminophen Tab 325 Mg Tab) 650 mg PO Q6HR PRN PRN Reason: Mild Pain or Fever > 100.5 Last Admin: 04/26/25 10:48 Dose: 650 mg Albuterol Sulfate (Albuterol Nebulized 2.5 Mg/3 Ml) 2.5 mg INHALATION RT-Q6H PRN PRN Reason: Shortness Of Breath Allopurinol (Allopurinol 100 Mg Tab) 200 mg PO DAILY [facility] Last Admin: 04/26/25 10:46 Dose: 200 mg Amlodipine Besylate (Amlodipine 5 Mg Tab) 5 mg PO DAILY [facility] Last Admin: 04/26/25 10:46 Dose: 5 mg Aspirin (Aspirin 81 Mg) 81 mg PO DAILY [facility] Last Admin: 04/26/25 11:00 Dose: 81 mg Carvedilol (Carvedilol 12.5 Mg Tab) 25 mg PO BID [facility] Last Admin: 04/26/25 10:47 Dose: 25 mg Cholecalciferol (Cholecalciferol 25 Mcg (1000 Iu) Tablet) 25 mcg PO DAILY [facility] Last Admin: 04/26/25 10:44 Dose: 25 mcg Diazepam (Diazepam 5 Mg Tab) 5 mg PO BID PRN PRN Reason: stress headaches Enoxaparin Sodium (Enoxaparin 30 Mg/0.3 Ml Syringe) 30 mg SQ DAILY [facility] Fenofibrate (Fenofibrate 160 Mg Tab) 160 mg PO DAILY [facility] Last Admin: 04/26/25 10:44 Dose: 160 mg Hydromorphone HCl (Hydromorphone 1 Mg/Ml 1 Ml Syringe) 1 mg IVP Q3HR PRN PRN Reason: Severe Pain (Scale 7 to 10) Last Admin: 04/26/25 15:02 Dose: 1 mg Sodium Bicarbonate 150 ml/ (Dextrose/Water) 1,150 mls @ 100 mls/hr IV .[id number] [facility] Last Admin: 04/26/25 11:01 Dose: 100 mls/hr Piperacillin Sod/Tazobactam (Sod 3.375 gm/ Sodium Chloride) 100 mls @ 25 mls/hr IVPB Q12H [facility]; Protocol Last Admin: 04/26/25 15:02 Dose: 25 mls/hr Naloxone HCl (Naloxone 0.4 Mg/Ml 1 Ml Vial) 0.2 mg IV Q2M PRN PRN Reason: Opioid Reversal Non-Formulary Medication (Icosapent Ethyl [Icosapent Ethyl]) 2 gm PO BID- W/MEALS [facility] Last Admin: 04/26/25 17:51 Dose: Not Given Tiotropium [place] (Tiotropium 2.5 Mcg Inhaler) 2 puff INHALATION RT-DAILY [facility] Last Admin: 04/26/25 09:45 Dose: 2 puff Social history: 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 Smoked for about 25 years stopped about 11 years ago. Physical examination: VITAL SIGNS: 98, 81, 16, 109 x 73, 98% room air GENERAL: BMI 40.7, in bed EYES: Pupils equal. Conjunctiva guillermina l. HEENT: External appearance of nose and ears normal, oral cavity grossly normal. NECK: JVD unable to assess masses not palpable. HEART: First and second heart sounds are normal; no edema. LUNGS: Respiratory rate normal; decreased breath sounds n. ABDOMEN: Soft, left lower quadrant tenderness, no guarding rigidity liver spleen not palpable, no masses palpable. PSYCH: Alert and oriented x3; mood and affect guillermina l. MUSCULOSKELETAL:No Clubbing/cyanosis;muscles-grossly intact INVESTIGATIONS, reviewed in the clinical context: April 26: White count 9.9 hemoglobin 11.4 platelets 173 potassium 5.9 BUN 82 creatinine 5.97 April 25, 2025: White count 15.0 hemoglobin 12.5 platelets 216 sodium 135 potassium 5.6 BUN [address] scan abdomen pelvis done at [facility]: Sigmoid colitis with m icroperforation. Scattered foci of air. No abscess. Assessment plan: - Acute diverticulitis with microperforation and scattered foci of air. No abscess. Symptoms have been progressive for 2 weeks.: Slow to respond On ice chips. Clear liquids from tonight.. IV fluids. IV Zosyn. General surgery following - Essential hypertension associated with polycystic kidney disease Amlodipine. Coreg. - Chronic kidney disease stage IV from underlying polycystic kidney disease: Acute worsening Nephrology following - Metabolic acidosis from worsening renal function IV bicarbonate drip - Hyperlipidemia Repatha - Chronic hyperuricemia/gout Allopurinol - Morbid obesity BMI 40.7 Weight loss measures - COPD now ex-smoker Spiriva 1 puff a day albuterol as needed - GERD PPI - Full code IV Zosyn. IV fluids. Bicarbonate drip. Clear liquid starting tonight. Discussed Past Medical History Past Medical History: Myocardial Infarction ([place]) Additional Past Medical History / Comment(s): kindey stone, PCKD, migraines Last Myocardial Infarction Date:: na History of Any Multi-Drug Resistant Organisms: MRSA Date of last positivie culture/infection: 2015 MDRO Source:: right arm Additional Past Surgical History / Comment(s): vastectomy Past Psychological History: No Psychological Hx Reported Smoking Status: Never smoker Past Alcohol Use History: Occasional Past Drug Use History: None Reported
[2025-04-27] MEDS: ENOXAPARIN 30 MG/0.3 ML SYRINGE SQ SCH (08:49)
[2025-04-27 08:52] LABS: Basophils # (A) 0.01 X 10*3/uL (0.00-0.10); Basophils % (A) 0.1 %; Eosinophils # (A) 0.03 X 10*3/uL (0.04-0.35); Eosinophils % (A) 0.3 %; HCT 34.5 % (39.6-50.0); HGB 10.7 g/dL (13.0-17.0); Immature Grans, Automated 0.40 %; Lymphocytes # (A) 0.40 X 10*3/uL (0.90-5.00); Lymphocytes % (A) 4.3 %; MCH 30.1 pg (27.0-32.0); MCHC 31.0 g/dL (32.0-37.0); MCV 96.9 FL (80.0-97.0); Monocytes # (A) 0.40 X 10*3/uL (0.20-1.00); Monocytes % (A) 4.3 %; NRBC Per 100 WBC 0 X 10*3/uL (0.00-0.01); Neutrophils # (A) 8.36 X 10*3/uL (1.80-7.70); Neutrophils % (A) 90.6 %; Platelet Count 164 X 10*3/uL (140-440); RBC 3.56 X 10*6/uL (4.40-5.60); RDW 14.3 % (11.5-14.5); WBC 9.24 X 10*3/uL (4.50-10.00)
[2025-04-27 09:20] LABS: Anion Gap 14.40 mmol/L (4.00-12.00); BUN/Creat Ratio 14.95 Ratio (12.00-20.00); Blood Urea Nitrogen 86.7 mg/dL (9.0-27.0); Calcium 8.3 mg/dL (8.7-10.3); Carbon Dioxide 18.6 mmol/L (21.6-31.8); Chloride 104 mmol/L (96-109); Glucose 109 mg/dL (70-110); Potassium 4.8 mmol/L (3.5-5.5); Sodium 137 mmol/L (135-145)
--- NOTE | 2025-04-27 13:08 | P.PN ---
Subjective Progress Note Date: 04/27/25 Principal diagnosis: Sigmoid diverticulitis Patient says his pain is improved. Down to about a 2-3 out of 10. He is passing flatus. No bowel movement. No nausea or vomiting. He is afebrile. White blood cell count 9. Objective - Vital Signs Vital signs: Vital Signs Temp 97.7 F 04/27/25 06:53 Pulse 80 04/27/25 06:53 Resp 16 04/27/25 06:53 BP 131/84 04/27/25 06:53 Pulse Ox 95 04/27/25 06:53 FiO2 Intake & Output 04/26/25 04/27/25 04/27/25 18:59 06:59 18:59 Other: # Voids 3 2 - Exam Abdomen: Soft, nondistended, mild left lower quadrant tenderness - Labs CBC & Chem 7: 04/27/25 03:03 04/27/25 03:03 Labs: Abnormal Lab Results - Last 24 Hours (Table) 04/27/25 04/27/25 Range/Units 03:03 03:03 RBC 3.56 L (4.40-5.60) X 10*6/uL Hgb 10.7 L (13.0-17.0) g/dL Hct 34.5 L (39.6-50.0) % MCHC 31.0 L (32.0-37.0) g/dL MPV 9.4 L (9.5-12.2) [place] Neutrophils # 8.36 H (1.80-7.70) X 10*3/uL Lymphocytes # 0.40 L (0.90-5.00) X 10*3/uL Eosinophils # 0.03 L (0.04-0.35) X 10*3/uL Carbon Dioxide 18.6 L (21.6-31.8) mmol/L Anion Gap 14.40 H (4.00-12.00) mmol/L BUN 86.7 H (9.0-27.0) mg/dL Creatinine 5.8 H (0.6-1.5) mg/dL Est GFR (CKD-EPI) 11 L (>=60) Calcium 8.3 L (8.7-10.3) mg/dL Assessment and Plan (1) Acute diverticulitis Narrative/Plan: Patient doing better today. Continue antibiotics. Advance to full liquid diet. Possible discharge tomorrow if doing well. Current Visit: Yes Status: Acute Code(s): K57.92 - DVTRCLI OF INTEST, PART UNSP, W/O PERF OR ABSCESS W/O BLEED SNOMED Code(s): 068039959
--- NOTE | 2025-04-27 16:29 | P.PN ---
Subjective Patient is seen for follow-up for chronic kidney disease. Renal function at baseline. Serum creatinine at 5.8 today. It was 6.0 in January, Abdominal pain slightly improved but persists No significant nausea or vomiting Trying to increase oral intake. Maintained on IV fluids Objective - Vital Signs Vital signs: Vital Signs Temp 98.2 F 04/27/25 13:39 Pulse 106 H 04/27/25 13:39 Resp 17 04/27/25 13:39 BP 126/81 04/27/25 13:39 Pulse Ox 93 L 04/27/25 13:39 FiO2 Intake & Output 04/26/25 04/27/25 04/27/25 18:59 06:59 18:59 Other: # Voids 3 2 - Exam Patient is awake, comfortable, no acute distress alert oriented x 3 Examination of the heart S1 and S2 Examination of the lungs bilateral breath sounds are heard Abdomen is soft obese with tenderness in the left lower quadrant Examination of lower extremities shows no significant edema, chronic skin changes [employer] exam grossly intact - Labs CBC & Chem 7: 04/27/25 03:03 04/27/25 03:03 Labs: Abnormal Lab Results - Last 24 Hours (Table) 04/27/25 04/27/25 Range/Units 03:03 03:03 RBC 3.56 L (4.40-5.60) X 10*6/uL Hgb 10.7 L (13.0-17.0) g/dL Hct 34.5 L (39.6-50.0) % MCHC 31.0 L (32.0-37.0) g/dL MPV 9.4 L (9.5-12.2) FL Neutrophils # 8.36 H (1.80-7.70) X 10*3/uL Lymphocytes # 0.40 L (0.90-5.00) X 10*3/uL Eosinophils # 0.03 L (0.04-0.35) X 10*3/uL Carbon Dioxide 18.6 L (21.6-31.8) mmol/L Anion Gap 14.40 H (4.00-12.00) mmol/L BUN 86.7 H (9.0-27.0) mg/dL Creatinine 5.8 H (0.6-1.5) mg/dL Est GFR (CKD-EPI) 11 L (>=60) Calcium 8.3 L (8.7-10.3) mg/dL Assessment and Plan Assessment: 1. Acute kidney injury, prerenal associated with volume depletion and underlying infection. Currently maintained on IV fluids. 2. Hyperkalemia associated with acute kidney injury 3. Chronic kidney disease stage V. Baseline creatinine around 4 to 5 mg/dL. Patient has had education regarding renal replacement therapy and he will be doing PD down the road. 4. Nongap metabolic acidosis secondary to renal failure 5. Hypertension with CKD stage V 6. Sigmoid colitis, maintained on antibiotics and general surgery on consult. Plan: Continue with IV fluids Continue with antibiotics No acute indication for starting renal replacement therapy. Renal function is at baseline.
--- NOTE | 2025-04-27 17:17 | P.PN ---
Progress Note - Text Progress Note Date: 04/27/25 Chief Complaint: Abdominal pain Pleasant 49-year-old patient who follows with Gem García CHIEF MEDIA OFFICER. Chronic medical conditions include polycystic kidney disease, kidney stones, gout, GERD, COPD, hypertension possible [place] in the remote past. For about 2 weeks patient been having abdominal pain left lower quadrant. Slowly getting worse. Finally decided to come in to [facility]. CT scan of the abdomen showed sigmoid colitis with microperforation and scattered foci of air. No abscess. He was transferred down here for surgical overview. Patient thinks that 2 episodes of diverticulitis possibly 5 to 6 years ago. Normally has a bowel movement every day. A bowel movement also was had yesterday. Has been having some nausea vomiting. No fever no chills. General surgery nephrology was consulted. April 26: Still having abdominal pain. Getting ice chips.. Per surgery advance to clear liquids at night. Getting IV Zosyn. Put on IV sodium bicarbonate drip with nephrology. Worsening renal function. Nephrology is following. Given Lokelma for increased potassium by nephrology. April 27: Laying in bed. Continues to abdominal pain. Had been up in the chair. Passing flatus. No BM. Clear liquids. IV Zosyn. Sodium bicarbonate drip. Spoke to Dr. Vásquez from nephrology. Patient's kidney functions baseline. Down the road we will get peritoneal dialysis. Has been advanced to full liquids by surgery Active Medications Acetaminophen (Acetaminophen Tab 325 Mg Tab) 650 mg PO Q6HR PRN PRN Reason: Mild Pain or Fever > 100.5 Last Admin: 04/26/25 10:48 Dose: 650 mg Albuterol Sulfate (Albuterol Nebulized 2.5 Mg/3 Ml) 2.5 mg INHALATION RT-Q6H PRN PRN Reason: Shortness Of Breath Allopurinol (Allopurinol 100 Mg Tab) 200 mg PO DAILY [facility] Last Admin: 04/27/25 08:48 Dose: 200 mg Amlodipine Besylate (Amlodipine 5 Mg Tab) 5 mg PO DAILY [facility] Last Admin: 04/27/25 08:49 Dose: 5 mg Aspirin (Aspirin 81 Mg) 81 mg PO DAILY [facility] Last Admin: 04/27/25 08:49 Dose: 81 mg Carvedilol (Carvedilol 12.5 Mg Tab) 25 mg PO BID [facility] Last Admin: 04/27/25 08:48 Dose: 25 mg Cholecalciferol (Cholecalciferol 25 Mcg (1000 Iu) Tablet) 25 mcg PO DAILY [facility] Last Admin: 04/27/25 08:49 Dose: 25 mcg Diazepam (Diazepam 5 Mg Tab) 5 mg PO BID PRN PRN Reason: stress headaches Enoxaparin Sodium (Enoxaparin 30 Mg/0.3 Ml Syringe) 30 mg SQ DAILY [facility] Last Admin: 04/27/25 08:49 Dose: 30 mg Fenofibrate (Fenofibrate 160 Mg Tab) 160 mg PO DAILY [facility] Last Admin: 04/27/25 08:49 Dose: 160 mg Hydromorphone HCl (Hydromorphone 1 Mg/Ml 1 Ml Syringe) 1 mg IVP Q3HR PRN PRN Reason: Severe Pain (Scale 7 to 10) Last Admin: 04/27/25 16:38 Dose: 1 mg Sodium Bicarbonate 150 ml/ (Dextrose/Water) 1,150 mls @ 100 mls/hr IV .[id number] [facility] Last Admin: 04/27/25 03:47 Dose: 100 mls/hr Piperacillin Sod/Tazobactam (Sod 3.375 gm/ Sodium Chloride) 100 mls @ 25 mls/hr IVPB Q12H [facility]; Protocol Last Admin: 04/27/25 16:20 Dose: 25 mls/hr Naloxone HCl (Naloxone 0.4 Mg/Ml 1 Ml Vial) 0.2 mg IV Q2M PRN PRN Reason: Opioid Reversal Non-Formulary Medication (Icosapent Ethyl [Icosapent Ethyl]) 2 gm PO BID- W/MEALS [facility] Last Admin: 04/27/25 16:25 Dose: Not Given Tiotropium [place] (Tiotropium 2.5 Mcg Inhaler) 2 puff INHALATION RT-DAILY [facility] Last Admin: 04/27/25 08:15 Dose: 2 puff Social history: 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 Lives with his 2 sons. Smoked for about 25 years stopped about 11 years ago. Physical examination: VITAL SIGNS: 98.2, 106, 17, 100 2691, 93% room air GENERAL: BMI 40.7, in bed EYES: Pupils equal. Conjunctiva guillermina l. HEENT: External appearance of nose and ears normal, oral cavity grossly normal. NECK: JVD unable to assess masses not palpable. HEART: First and second heart sounds are normal; no edema. LUNGS: Respiratory rate normal; decreased breath sounds n. ABDOMEN: Soft, left lower quadrant tenderness, no guarding rigidity liver spleen not palpable, no masses palpable. PSYCH: Alert and oriented x3; mood and affect guillermina l. MUSCULOSKELETAL:No Clubbing/cyanosis;muscles-grossly intact INVESTIGATIONS, reviewed in the clinical context: April 27: White count 9.2 hemoglobin 10.7 potassium 4.8 BUN 86.7 creatinine 5.8 April 26: White count 9.9 hemoglobin 11.4 platelets 173 potassium 5.9 BUN 82 creatinine 5.97 April 25, 2025: White count 15.0 hemoglobin 12.5 platelets 216 sodium 135 potassium 5.6 BUN [address] scan abdomen pelvis done at [facility]: Sigmoid colitis with microperforation. Scattered foci of air. No abscess. Assessment plan: - Acute diverticulitis with microperforation and scattered foci of air. No abscess. Symptoms have been progressive for 2 weeks.: Slow to respond On clear liquids. Advance to full liquids tonight by surgery.. IV fluids. IV Zosyn. General surgery following - Essential hypertension associated with polycystic kidney disease Amlodipine. Coreg. - Chronic kidney disease stage IV from underlying polycystic kidney disease: Acute worsening Nephrology following For peritoneal dialysis down the road - Metabolic acidosis from worsening renal function IV bicarbonate drip - Hyperlipidemia Repatha - Chronic hyperuricemia/gout Allopurinol - Morbid obesity BMI 40.7 Weight loss measures - COPD now ex-smoker Spiriva 1 puff a day albuterol as needed - GERD PPI - Full code IV Zosyn.. Bicarbonate drip. Advance to full liquids tonight per surgery Past Medical History Past Medical History: Myocardial Infarction ([place]) Additional Past Medical History / Comment(s): kindey stone, PCKD, migraines Last Myocardial Infarction Date:: na History of Any Multi-Drug Resistant Organisms: MRSA Date of last positivie culture/infection: 2015 MDRO Source:: right arm Additional Past Surgical History / Comment(s): vastectomy Past Psychological History: No Psychological Hx Reported Smoking Status: Never smoker Past Alcohol Use History: Occasional Past Drug Use History: None Reported
--- NOTE | 2025-04-27 17:57 | CDI ---
Documentation Clarification Form Date: 04/27/2025 05:42:23 PM From: Cate Solo RN CCDS Phone: [phone] Admit Date: 04/25/2025 01:06:00 PM Patient Name: John Roblero Visit Number: [id number] Discharge Date: ATTENTION: The Clinical Documentation Specialists (CDI) and [facility] Coding Staff appreciate your assistance in clarifying documentation. Please respond to the clarification below the line at the bottom and electronically sign. The CDI & [facility] Coding staff will review the response and follow-up if needed. Please note: Queries are made part of the Legal Health Record. If you have any questions, please contact the author of this message via ITS. Doctor: Joey Montalvo Conflicting documentation has been found in the medical record. As attending physician, please provide clarification. Chronic kidney disease stage IV , 04/24, HP Chronic kidney disease stage V, 04/26, Nephrology Consult History/Risk Factors: 04/26, Nephrology consult: Chronic kidney disease stage V. Baseline creatinine around 4 to 5mg/dl Clinical Indicators: 04/25 : Bun 77; Cr 4.68; GFR 14 04/26: Bun 82; Cr 5.97; GFR 10 Treatment: 04/25 04/26 0.9NS IV 130cc/hr; 04/26 Dextrose/Water with Sodium Bicarbonate 1,150mls@100mls/hr [id number] Please clarify which diagnosis is most appropriate: [ ] Chronic kidney disease stage IV [ + ] Chronic kidney disease stage V [ ] Other (please specify) [ ] Unable to determine (Template Last Revised: December 2020) MTDD
--- NOTE | 2025-04-28 12:26 | P.PN ---
Subjective Progress Note Date: 04/28/25 Patient is seen for follow-up for chronic kidney disease. No new complaints. Patient is awake, comfortable, no acute distress alert oriented x 3 Examination of the heart S1 and S2 Examination of the lungs bilateral breath sounds are heard Abdomen is soft obese with tenderness in the left lower quadrant Examination of lower extremities shows no significant edema, chronic skin changes Objective - Vital Signs Vital signs: Vital Signs Temp 98.5 F 04/28/25 07:27 Pulse 86 04/28/25 07:27 Resp 20 04/28/25 07:27 BP 128/81 04/28/25 07:27 Pulse Ox 96 04/28/25 07:27 FiO2 Intake & Output 04/27/25 04/28/25 04/28/25 18:59 06:59 18:59 Intake Total 1620 Balance 1620 Intake: Oral 1620 Other: # Voids 4 5 - Labs CBC & Chem 7: 04/27/25 03:03 04/27/25 03:03 Assessment and Plan Assessment: 1. Acute kidney injury, prerenal associated with volume depletion and underlying infection. Currently maintained on bicarb drip. 2. Hyperkalemia associated with acute kidney injury 3. Chronic kidney disease stage V. Baseline creatinine around 4 to 5 mg/dL. Patient has had education regarding renal replacement therapy and he will be doing PD down the road. 4. [place]ongap metabolic acidosis secondary to renal failure 5. Hypertension with CKD stage V 6. Sigmoid colitis, maintained on antibiotics and general surgery on consult. Plan: Continue with IV fluids, currently on bicarb drip. Awaiting repeat labs today Continue with antibiotics No acute indication for starting renal replacement therapy. Renal function is at baseline and no uremic symptoms
--- NOTE | 2025-04-28 12:29 | P.PN ---
Subjective Progress Note Date: 04/28/25 Principal diagnosis: Sigmoid diverticulitis Patient says he feels about the same as yesterday. Mild left lower quadrant pain. Tolerating full liquids. Last bowel movement 2 to 3 days ago. He is passing flatus. No nausea. Says he had labs drawn this morning which are not back yet. He is afebrile. Objective - Vital Signs Vital signs: Vital Signs Temp 98.5 F 04/28/25 07:27 Pulse 86 04/28/25 07:27 Resp 20 04/28/25 07:27 BP 128/81 04/28/25 07:27 Pulse Ox 96 04/28/25 07:27 FiO2 Intake & Output 04/27/25 04/28/25 04/28/25 18:59 06:59 18:59 Intake Total 1620 Balance 1620 Intake: Oral 1620 Other: # Voids 4 5 - Exam Abdomen: Soft, nondistended, mild left lower quadrant tenderness - Labs CBC & Chem 7: 04/27/25 03:03 04/27/25 03:03 Assessment and Plan (1) Acute diverticulitis Narrative/Plan: 49-year-old male with diverticulitis. Patient feels about the same as yesterday. Continue full liquid diet. Continue antibiotics. Check today's labs. Current Visit: Yes Status: Acute Code(s): K57.92 - DVTRCLI OF INTEST, PART UNSP, W/O PERF OR ABSCESS W/O BLEED SNOMED Code(s): 151870423
[2025-04-28 13:41] LABS: Albumin 2.9 g/dL (3.8-4.9); Anion Gap 10.70 mmol/L (4.00-12.00); BUN/Creat Ratio 13.06 Ratio (12.00-20.00); Blood Urea Nitrogen 69.2 mg/dL (9.0-27.0); Calcium 7.9 mg/dL (8.7-10.3); Carbon Dioxide 23.3 mmol/L (21.6-31.8); Chloride 96 mmol/L (96-109); Glucose 130 mg/dL (70-110); Potassium 4.2 mmol/L (3.5-5.5); Sodium 130 mmol/L (135-145)
--- NOTE | 2025-04-28 15:05 | P.PN ---
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 Chronic medical conditions include polycystic kidney disease, kidney stones, gout, GERD, COPD, hypertension possible [place] in the remote past. For about 2 weeks patient been having abdominal pain left lower quadrant. Slowly getting worse. Finally decided to come in to [facility]. CT scan of the abdomen showed sigmoid colitis with microperforation and scattered foci of air. No abscess. He was transferred down here for surgical overview. Patient thinks that 2 episodes of diverticulitis possibly 5 to 6 years ago. Normally has a bowel movement every day. A bowel movement also was had yesterday. Has been having some nausea vomiting. No fever no chills. General surgery nephrology was consulted. April 26: Still having abdominal pain. Getting ice chips.. Per surgery advance to clear liquids at night. Getting IV Zosyn. Put on IV sodium bicarbonate drip with nephrology. Worsening renal function. Nephrology is following. Given Lokelma for increased potassium by nephrology. April 27: Laying in bed. Continues to abdominal pain. Had been up in the chair. Passing flatus. No BM. Clear liquids. IV Zosyn. Sodium bicarbonate drip. Spoke to Dr. Vásquez from nephrology. Patient's kidney functions baseline. Down the road we will get peritoneal dialysis. Has been advanced to full liquids by surgery April 28: Still having abdominal pain. No bowel movement. On full liquids per surgery. IV Zosyn to continue. Discussed with patient. Bicarbonate up to 23.3. DC sodium bicarbonate drip. Changed to half saline. Active Medications Acetaminophen (Acetaminophen Tab 325 Mg Tab) 650 mg PO Q6HR PRN PRN Reason: Mild Pain or Fever > 100.5 Last Admin: 04/26/25 10:48 Dose: 650 mg Albuterol Sulfate (Albuterol Nebulized 2.5 Mg/3 Ml) 2.5 mg INHALATION RT-Q6H PRN PRN Reason: Shortness Of Breath Allopurinol (Allopurinol 100 Mg Tab) 200 mg PO DAILY [facility] Last Admin: 04/28/25 09:39 Dose: 200 mg Amlodipine Besylate (Amlodipine 5 Mg Tab) 5 mg PO DAILY [facility] Last Admin: 04/28/25 09:39 Dose: 5 mg Aspirin (Aspirin 81 Mg) 81 mg PO DAILY [facility] Last Admin: 04/28/25 09:40 Dose: 81 mg Carvedilol (Carvedilol 12.5 Mg Tab) 25 mg PO BID [facility] Last Admin: 04/28/25 09:39 Dose: 25 mg Cholecalciferol (Cholecalciferol 25 Mcg (1000 Iu) Tablet) 25 mcg PO DAILY [facility] Last Admin: 04/28/25 09:39 Dose: 25 mcg Diazepam (Diazepam 5 Mg Tab) 5 mg PO BID PRN PRN Reason: stress headaches Enoxaparin Sodium (Enoxaparin 30 Mg/0.3 Ml Syringe) 30 mg SQ DAILY [facility] Last Admin: 04/28/25 09:39 Dose: 30 mg Fenofibrate (Fenofibrate 160 Mg Tab) 160 mg PO DAILY [facility] Last Admin: 04/28/25 09:39 Dose: 160 mg Hydromorphone HCl (Hydromorphone 1 Mg/Ml 1 Ml Syringe) 1 mg IVP Q3HR PRN PRN Reason: Severe Pain (Scale 7 to 10) Last Admin: 04/28/25 09:40 Dose: 1 mg Piperacillin Sod/Tazobactam (Sod 3.375 gm/ Sodium Chloride) 100 mls @ 25 mls/hr IVPB Q12H [facility]; Protocol Last Admin: 04/28/25 03:39 Dose: 25 mls/hr Naloxone HCl (Naloxone 0.4 Mg/Ml 1 Ml Vial) 0.2 mg IV Q2M PRN PRN Reason: Opioid Reversal Non-Formulary Medication (Icosapent Ethyl [Icosapent Ethyl]) 2 gm PO BID- W/MEALS [facility] Last Admin: 04/28/25 06:45 Dose: Not Given Tiotropium [place] (Tiotropium 2.5 Mcg Inhaler) 2 puff INHALATION RT-DAILY [facility] Last Admin: 04/28/25 09:23 Dose: 2 puff Social history: 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 Lives with his 2 sons. Smoked for about 25 years stopped about 11 years ago. Physical examination: VITAL SIGNS: 98.5, 82, 18, 11/11/1979, 95% room air GENERAL: BMI 40.7, in bed EYES: Pupils equal. Conjunctiva guillermina l. HEENT: External appearance of nose and ears normal, oral cavity grossly normal. NECK: JVD unable to assess masses not palpable. HEART: First and second heart sounds are normal; no edema. LUNGS: Respiratory rate normal; decreased breath sounds n. ABDOMEN: Soft, left lower quadrant tenderness, no guarding rigidity liver spleen not palpable, no masses palpable. PSYCH: Alert and oriented x3; mood and affect guillermina l. MUSCULOSKELETAL:No Clubbing/cyanosis;muscles-grossly intact INVESTIGATIONS, reviewed in the clinical context: April 28: BUN 69.2 creatinine 5.3 April 27: White count 9.2 hemoglobin 10.7 potassium 4.8 BUN 86.7 creatinine 5.8 April 26: White count 9.9 hemoglobin 11.4 platelets 173 potassium 5.9 BUN 82 creatinine 5.97 April 25, 2025: White count 15.0 hemoglobin 12.5 platelets 216 sodium 135 potassium 5.6 BUN [address] scan abdomen pelvis done at [facility]: Sigmoid colitis with microperforation. Scattered foci of air. No abscess. Assessment plan: - Acute diverticulitis with microperforation and scattered foci of air. No abscess. Symptoms have been progressive for 2 weeks.: Slow to respond On full liquids. . IV fluids. IV Zosyn. General surgery following - Essential hypertension associated with polycystic kidney disease Amlodipine. Coreg. - Chronic kidney disease stage IV from underlying polycystic kidney disease: Acute worsening Nephrology following For peritoneal dialysis down the road - Metabolic acidosis from worsening renal function: Corrected IV bicarbonate drip - Hyperlipidemia Repatha - Chronic hyperuricemia/gout Allopurinol - Morbid obesity BMI 40.7 Weight loss measures - COPD now ex-smoker Spiriva 1 puff a day albuterol as needed - GERD PPI - Full code DC bicarbonate drip. Changed to half saline. On liquid diet. Past Medical History Past Medical History: Myocardial Infarction ([place]) Additional Past Medical History / Comment(s): kindey stone, PCKD, migraines Last Myocardial Infarction Date:: na History of Any Multi-Drug Resistant Organisms: MRSA Date of last positivie culture/infection: 2015 MDRO Source:: right arm Additional Past Surgical History / Comment(s): vastectomy Past Psychological History: No Psychological Hx Reported Smoking Status: Never smoker Past Alcohol Use History: Occasional Past Drug Use History: None Reported
[2025-04-28] MEDS: SODIUM CHLORIDE 0.45% 1,000 ML IV SCH (15:55)
[2025-04-29 03:29] LABS: Basophils # (A) 0.01 10*3/uL (0.00-0.10); Basophils % (A) 0.1 %; Eosinophils # (A) 0.08 10*3/uL (0.04-0.35); Eosinophils % (A) 1.1 %; HCT 29.0 % (39.6-50.0); Lymphocytes # (A) 0.52 10*3/uL (0.90-5.00); Lymphocytes % (A) 7.3 %; MCH 31.1 pg (27.0-32.0); MCHC 34.1 g/dL (32.0-37.0); Monocytes # (A) 0.69 10*3/uL (0.20-1.00); Monocytes % (A) 9.7 %; Neutrophils # (A) 5.78 10*3/uL (1.80-7.70); Neutrophils % (A) 81.4 %; Platelet Count 139 10*3/uL (140-440); RBC 3.18 10*6/uL (4.40-5.60); RDW 13.5 % (11.5-14.5); WBC 7.11 10*3/uL (4.50-10.00)
[2025-04-29 03:50] LABS: ALT 15 U/L (4-49); AST 25 U/L (17-59); African American GFR (CKD) 15 (>60 ml/min/1.73 sqM); Albumin 2.7 g/dL (3.5-5.0); Albumin/Globulin Ratio 1.2; Alkaline Phosphatase 35 U/L (38-126); Anion Gap 11 mmol/L; Blood Urea Nitrogen 72 mg/dL (9-20); Calcium 8.2 mg/dL (8.4-10.2); Carbon Dioxide 22 mmol/L (22-30); Chloride 98 mmol/L (98-107); Globulin 2.3 g/dL; Glucose 97 mg/dL (74-99); Non-African American GFR(CKD) 13 (>60 ml/min/1.73 sqM); Potassium 4.1 mmol/L (3.5-5.1); Sodium 131 mmol/L (137-145); Total Protein 5.0 g/dL (6.3-8.2)
[2025-04-29 04:12] LABS: HGB 9.9 g/dL (13.0-17.0)
[2025-04-29 04:13] LABS: MCV 91.2 fL (80.0-97.0)
[2025-04-29] MEDS: VASCEPA 1 GM PO SCH (06:47)
--- NOTE | 2025-04-29 10:16 | P.PN ---
Subjective Progress Note Date: 04/29/25 Principal diagnosis: Sigmoid diverticulitis Patient thinks he is feeling a bit better today. White blood cell count 7.1. No fevers. Not been ambulating much. Tolerating full liquids. Objective - Vital Signs Vital signs: Vital Signs Temp 98.4 F 04/29/25 07:38 Pulse 78 04/29/25 07:38 Resp 18 04/29/25 07:38 BP 128/82 04/29/25 07:38 Pulse Ox 96 04/29/25 07:38 FiO2 Intake & Output 04/28/25 04/29/25 04/29/25 18:59 06:59 18:59 Intake Total 2160 Balance 2160 Intake: Oral 2160 Other: # Voids 3 6 # Bowel Movements 0 1 - Exam Abdomen: Soft, nondistended, no appreciable tenderness - Labs CBC & Chem 7: 04/29/25 03:16 04/29/25 03:16 Labs: Abnormal Lab Results - Last 24 Hours (Table) 04/28/25 04/29/25 04/29/25 Range/Units 10:20 03:16 03:16 RBC 3.18 L (4.40-5.60) 10*6/uL Hgb 9.9 L D (13.0-17.0) g/dL Hct 29.0 L (39.6-50.0) % Plt Count 139 L (140-440) 10*3/uL MPV 9.2 L (9.5-12.2) fL Lymphocytes # 0.52 L (0.90-5.00) 10*3/uL Sodium 130 L 131 L (135-145) mmol/L BUN 69.2 H 72 H (9.0-27.0) mg/dL Creatinine 5.3 H 4.91 H (0.6-1.5) mg/dL Est GFR (CKD-EPI) 12 L (>=60) Glucose 130 H (70-110) mg/dL Calcium 7.9 L 8.2 L (8.7-10.3) mg/dL Alkaline Phosphatase 35 L (38-126) U/L Total Protein 5.0 L (6.3-8.2) g/dL Albumin 2.9 L 2.7 L (3.8-4.9) g/dL Assessment and Plan (1) Acute diverticulitis Narrative/Plan: Patient doing better today. Advance to low fiber diet. Increase activity. Discharge later today or tomorrow if tolerates on oral antibiotics. Current Visit: Yes Status: Acute Code(s): K57.92 - DVTRCLI OF INTEST, PART UNSP, W/O PERF OR ABSCESS W/O BLEED SNOMED Code(s): 447559789
--- NOTE | 2025-04-29 12:33 | P.PN ---
Subjective Progress Note Date: 04/29/25 Patient is seen for follow-up for chronic kidney disease. No new complaints. Patient is awake, comfortable, no acute distress alert oriented x 3 Examination of the heart S1 and S2 Examination of the lungs bilateral breath sounds are heard Abdomen is soft obese with tenderness in the left lower quadrant Examination of lower extremities shows no significant edema, chronic skin changes Objective - Vital Signs Vital signs: Vital Signs Temp 98.4 F 04/29/25 07:38 Pulse 78 04/29/25 07:38 Resp 18 04/29/25 07:38 BP 128/82 04/29/25 07:38 Pulse Ox 96 04/29/25 07:38 FiO2 Intake & Output 04/28/25 04/29/25 04/29/25 18:59 06:59 18:59 Intake Total 2160 Balance 2160 Intake: Oral 2160 Other: # Voids 3 6 # Bowel Movements 0 1 - Labs CBC & Chem 7: 04/29/25 03:16 04/29/25 03:16 Labs: Abnormal Lab Results - Last 24 Hours (Table) 04/28/25 04/29/25 04/29/25 Range/Units 10:20 03:16 03:16 RBC 3.18 L (4.40-5.60) 10*6/uL Hgb 9.9 L D (13.0-17.0) g/dL Hct 29.0 L (39.6-50.0) % Plt Count 139 L (140-440) 10*3/uL MPV 9.2 L (9.5-12.2) fL Lymphocytes # 0.52 L (0.90-5.00) 10*3/uL Sodium 130 L 131 L (135-145) mmol/L BUN 69.2 H 72 H (9.0-27.0) mg/dL Creatinine 5.3 H 4.91 H (0.6-1.5) mg/dL Est GFR (CKD-EPI) 12 L (>=60) Glucose 130 H (70-110) mg/dL Calcium 7.9 L 8.2 L (8.7-10.3) mg/dL Alkaline Phosphatase 35 L (38-126) U/L Total Protein 5.0 L (6.3-8.2) g/dL Albumin 2.9 L 2.7 L (3.8-4.9) g/dL Assessment and Plan Assessment: 1. Acute kidney injury, prerenal associated with volume depletion and underlying infection. 2. Hyperkalemia associated with acute kidney injury-Resolved 3. Chronic kidney disease stage V. Baseline creatinine around 4-5 mg/dL. Patient has had education regarding renal replacement therapy and he will be doing PD down the road. 4. Non-gap metabolic acidosis secondary to renal failure status post bicarb drip. 5. Hypertension with CKD stage V 6. Sigmoid colitis, maintained on antibiotics and general surgery on consult. Plan: Will discontinue IVF Renal function improving back near baseline level Continue with antibiotics No acute indication for starting renal replacement therapy. Renal function is at baseline and no uremic symptoms
--- NOTE | 2025-04-29 16:53 | P.PN ---
Progress Note - Text Progress Note Date: 04/29/25 Chief Complaint: Abdominal pain Pleasant 49-year-old patient who follows with Gem [facility]. Chronic medical conditions include polycystic kidney disease, kidney stones, gout, GERD, COPD, hypertension possible NH in the remote past. For about 2 weeks patient been having abdominal pain left lower quadrant. Slowly getting worse. Finally decided to come in to [facility]. CT scan of the abdomen showed sigmoid colitis with microperforation and scattered foci of air. No abscess. He was transferred down here for surgical overview. Patient thinks that 2 episodes of diverticulitis possibly 5 to 6 years ago. Normally has a bowel movement every day. A bowel movement also was had yesterday. Has been having some nausea vomiting. No fever no chills. General surgery nephrology was consulted. April 26: Still having abdominal pain. Getting ice chips.. Per surgery advance to clear liquids at night. Getting IV Zosyn. Put on IV sodium bicarbonate drip with nephrology. Worsening renal function. Nephrology is following. Given Lokelma for increased potassium by nephrology. April 27: Laying in bed. Continues to abdominal pain. Had been up in the chair. Passing flatus. No BM. Clear liquids. IV Zosyn. Sodium bicarbonate drip. Spoke to Dr. Vásquez from nephrology. Patient's kidney functions baseline. Down the road we will get peritoneal dialysis. Has been advanced to full liquids by surgery April 28: Still having abdominal pain. No bowel movement. On full liquids per surgery. IV Zosyn to continue. Discussed with patient. Bicarbonate up to 23.3. DC sodium bicarbonate drip. Changed to half saline. April 29: Patient had a small amount of bowel movement. Soft. Abdominal pain still present. Though bit better. Patient is advanced to a low fiber chopped diet by surgery. Will order his repeat CT scan for tomorrow morning. With p.o. contrast only Active Medications Acetaminophen (Acetaminophen Tab 325 Mg Tab) 650 mg PO Q6HR PRN PRN Reason: Mild Pain or Fever > 100.5 Last Admin: 04/26/25 10:48 Dose: 650 mg Albuterol Sulfate (Albuterol Nebulized 2.5 Mg/3 Ml) 2.5 mg INHALATION RT-Q6H PRN PRN Reason: Shortness Of Breath Allopurinol (Allopurinol 100 Mg Tab) 200 mg PO DAILY [facility] Last Admin: 04/29/25 09:54 Dose: 200 mg Amlodipine Besylate (Amlodipine 5 Mg Tab) 5 mg PO DAILY [facility] Last Admin: 04/29/25 09:54 Dose: 5 mg Aspirin (Aspirin 81 Mg) 81 mg PO DAILY [facility] Last Admin: 04/29/25 09:54 Dose: 81 mg Carvedilol (Carvedilol 12.5 Mg Tab) 25 mg PO BID [facility] Last Admin: 04/29/25 09:54 Dose: 25 mg Cholecalciferol (Cholecalciferol 25 Mcg (1000 Iu) Tablet) 25 mcg PO DAILY [facility] Last Admin: 04/29/25 09:54 Dose: 25 mcg Diazepam (Diazepam 5 Mg Tab) 5 mg PO BID PRN PRN Reason: stress headaches Enoxaparin Sodium (Enoxaparin 30 Mg/0.3 Ml Syringe) 30 mg SQ DAILY [facility] Last Admin: 04/29/25 09:53 Dose: 30 mg Fenofibrate (Fenofibrate 160 Mg Tab) 160 mg PO DAILY [facility] Last Admin: 04/29/25 09:53 Dose: 160 mg Hydromorphone HCl (Hydromorphone 1 Mg/Ml 1 Ml Syringe) 1 mg IVP Q3HR PRN PRN Reason: Severe Pain (Scale 7 to 10) Last Admin: 04/29/25 09:45 Dose: 1 mg Piperacillin Sod/Tazobactam (Sod 3.375 gm/ Sodium Chloride) 100 mls @ 25 mls/hr IVPB Q12H [facility]; Protocol Last Admin: 04/29/25 15:20 Dose: 25 mls/hr Iopamidol (Iopamidol Contrast (Oral Use) Vial) 30 ml PO Q60M PRN PRN Reason: CT Scan Stop: 04/30/25 13:55 Naloxone HCl (Naloxone 0.4 Mg/Ml 1 Ml Vial) 0.2 mg IV Q2M PRN PRN Reason: Opioid Reversal Vascepa (Icosapent Ethyl) 1 Gram Capsule 2 each PO BID-W/MEALS [facility] Last Admin: 04/29/25 06:47 Dose: 2 each Tiotropium Edison (Tiotropium 2.5 Mcg Inhaler) 2 puff INHALATION RT-DAILY [facility] Last Admin: 04/29/25 08:30 Dose: 2 puff Social history: 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 Lives with his 2 sons. Smoked for about 25 years stopped about 11 years ago. Physical examination: VITAL SIGNS: 98.5, 95, 20, 121 x 76, 99% room air GENERAL: BMI 40.7, in bed EYES: Pupils equal. Conjunctiva guillermina l. HEENT: External appearance of nose and ears normal, oral cavity grossly normal. NECK: JVD unable to assess masses not palpable. HEART: First and second heart sounds are normal; no edema. LUNGS: Respiratory rate normal; decreased breath sounds n. ABDOMEN: Soft, decreased left quadrant tenderness, no guarding rigidity liver spleen not palpable, no masses palpable. PSYCH: Alert and oriented x3; mood and affect guillermina l. MUSCULOSKELETAL:No Clubbing/cyanosis;muscles-grossly intact INVESTIGATIONS, reviewed in the clinical context: April 29: White count 7.1 hemoglobin 9.9 potassium 4.1 BUN 72 creatinine 4.91 April 28: BUN 69.2 creatinine 5.3 April 27: White count 9.2 hemoglobin 10.7 potassium 4.8 BUN 86.7 creatinine 5.8 April 26: White count 9.9 hemoglobin 11.4 platelets 173 potassium 5.9 BUN 82 creatinine 5.97 April 25, 2025: White count 15.0 hemoglobin 12.5 platelets 216 sodium 135 potassium 5.6 BUN [address] scan abdomen pelvis done at [facility]: Sigmoid colitis with microperforation. Scattered foci of air. No abscess. Assessment plan: - Acute diverticulitis with microperforation and scattered foci of air. No abscess. Symptoms have been progressive for 2 weeks.: Some improvement Tolerated full liquids. . IV fluids. IV Zosyn. General surgery following-advanced to soft bland diet Repeat CT scan abdomen without IV contrast only p.o. contrast tomorrow - Essential hypertension associated with polycystic kidney disease Amlodipine. Coreg. - Chronic kidney disease stage IV from underlying polycystic kidney disease: Acute worsening Nephrology following For peritoneal dialysis down the road - Metabolic acidosis from worsening renal function: Corrected Received IV bicarbonate drip - Hyperlipidemia Repatha - Chronic hyperuricemia/gout Allopurinol - Morbid obesity BMI 40.7 Weight loss measures - COPD now ex-smoker Spiriva 1 puff a day albuterol as needed - GERD PPI - Full code Cussed with patient Past Medical History Past Medical History: Myocardial Infarction (NH) Additional Past Medical History / Comment(s): SUDHAKAR davisonKD, migraines Last Myocardial Infarction Date:: na History of Any Multi-Drug Resistant Organisms: MRSA Date of last positivie culture/infection: 2015 MDRO Source:: right arm Additional Past Surgical History / Comment(s): vastectomy Past Psychological History: No Psychological Hx Reported Smoking Status: Never smoker Past Alcohol Use History: Occasional Past Drug Use History: None Reported
[2025-04-30] MEDS: IOPAMIDOL CONTRAST (ORAL USE) VIAL PO PRN (06:53)
[2025-04-30 07:26] VITALS: PULSE 73
--- NOTE | 2025-04-30 09:32 | CT ---
EXAMINATION TYPE: CT abdomen pelvis wo con DATE OF EXAM: 04/30/2025 8:59 AM COMPARISON: CT abdomen pelvis most recent from 10/22/2017, 04/25/2025 CLINICAL INDICATION: Male, 49 years old with history of f/u diverticulitis; F/U Diverticulitis TECHNIQUE: Axial CT abdomen pelvis wo con;Sagittal and coronal reformats were created on a separate workstation. Contrast used: mL of , (none if empty) Oral contrast used: with Oral Contrast (none if empty) CT DLP: 1755.4 mGycm, Automated exposure control for dose reduction was used. FINDINGS: LOWER CHEST: Cardiomegaly. Trace bilateral pleural effusions. ABDOMEN LIVER: Polycystic kidney disease with innumerable hepatic cysts. GALLBLADDER AND BILE DUCTS: Layering increased densities within the lumen consistent with gallstones are present. PANCREAS: Unremarkable. SPLEEN: Unremarkable. ADRENAL GLANDS: Unremarkable. KIDNEYS AND URETERS: Innumerable bilateral renal cysts some of which are densely. Few scattered renal cyst wall calcifications are present. No evidence of hydronephrosis or obstructing renal calculus. T he ureters are unremarkable. PELVIS BLADDER: No evidence for wall thickening or mass given limitations of exam. REPRODUCTIVE: Unremarkable. ABDOMEN & PELVIS STOMACH AND BOWEL: No evidence of bowel obstruction. Circumferential wall thickening with fat strandi ng changes around the colon with multiple diverticula present predominantly involving the sigmoid col on. A few foci of gas are outside the lumen of the colon series 202 image 47 and image 35 Which is no t all that different from 05/05/2025. Simple appearing fluid is likely present extending down towards the pelvis. Measuring up to 8.8 x 3.0 cm and is entirely surrounded by bowel and/or vascular structur es. This is slightly larger compared to prior 7 and . PERITONEUM/RETROPERITONEUM: No evidence of pneumoperitoneum or free fluid. VASCULATURE: No evidence of aortic aneurysm. MUSCULOSKELETAL: No acute osseous abnormalities LYMPH NODES: No gross evidence for lymphadenopathy. SOFT TISSUE/ABDOMINAL WALL: Fat-containing umbilical hernia. IMPRESSION: 1. Overall similar appearance to the Colitis/diverticulitis with microperforation. Simple appearing density fluid layering in the pelvis possibly reactive is slightly larger, superimposed infection is not excluded. 2. Polycystic kidney disease with innumerable bilateral renal cysts some with high density and some with wall calcifications. 3. Cholelithiasis. 4. Innumerable hepatic cysts. 5. New trace bilateral pleural effusions. [facility], , 04/30/2025 9:30 AM
--- NOTE | 2025-04-30 09:46 | P.PN ---
Subjective Patient seen in follow-up for chronic kidney disease. Diarrhea improving. Tolerating oral intake. Has been voiding. Vital signs are stable. General: No acute distress. HEENT: Head exam is unremarkable. LUNGS: No audible rhonchi or wheezes. HEART: Rate and Rhythm are regular. Russ ABDOMEN: Nontender. EXTREMITITES: No edema. Objective - Vital Signs Vital signs: Vital Signs Temp 97.9 F 04/30/25 07:24 Pulse 73 04/30/25 07:24 Resp 16 04/30/25 07:24 BP 156/75 04/30/25 07:24 Pulse Ox 100 04/30/25 01:59 FiO2 Intake & Output 04/29/25 04/30/25 04/30/25 18:59 06:59 18:59 Intake Total 540 Balance 540 Intake: Oral 540 Other: # Voids 3 4 # Bowel Movements 0 - Labs CBC & Chem 7: 04/29/25 03:16 04/29/25 03:16 Assessment and Plan Plan: Assessment: 1. Acute kidney injury secondary to vasomotor nephropathy secondary to hypovolemia from GI losses. Improved. Creatinine 4.9 yesterday. 2. Chronic kidney disease stage V with baseline creatinine in the range of 4-5. Patient will do peritoneal dialysis in the near future. 3. Hyperkalemia secondary to acute kidney injury. Resolved. 4. Metabolic acidosis secondary to chronic kidney disease and GI losses. Improved. 5. Hypertension with chronic knee disease. Stable. 6. Sigmoid colitis. Surgery following. On antibiotics. Plan: Encouraged oral intake. Avoid nephrotoxins. No urgent need for renal replacement therapy at this time. Patient will start peritoneal dialysis outpatient in the near future.
[2025-04-30 10:45] LABS: Basophils # (A) 0.00 10*3/uL (0.00-0.10); Basophils % (A) 0.0 %; Eosinophils # (A) 0.13 10*3/uL (0.04-0.35); Eosinophils % (A) 1.8 %; HCT 31.4 % (39.6-50.0); HGB 10.3 g/dL (13.0-17.0); Lymphocytes # (A) 0.39 10*3/uL (0.90-5.00); Lymphocytes % (A) 5.4 %; MCH 30.3 pg (27.0-32.0); MCHC 32.8 g/dL (32.0-37.0); MCV 92.4 fL (80.0-97.0); Monocytes # (A) 0.76 10*3/uL (0.20-1.00); Monocytes % (A) 10.6 %; Neutrophils # (A) 5.85 10*3/uL (1.80-7.70); Neutrophils % (A) 81.6 %; Platelet Count 148 10*3/uL (140-440); RBC 3.40 10*6/uL (4.40-5.60); RDW 13.8 % (11.5-14.5); WBC 7.17 10*3/uL (4.50-10.00)
--- NOTE | 2025-04-30 11:21 | P.PN ---
Subjective Progress Note Date: 04/30/25 SURGICAL PROGRESS NOTE CHIEF COMPLAINT: Diverticulitis with microperforation HISTORY OF PRESENT ILLNESS: Patient reports mild discomfort in the left lower quadrant. Patient reports that overall he is feeling better. He is able to tolerate the low fiber diet. He had a repeat CT scan abdomen and pelvis that reported overall similar appearance to the colitis/diverticulitis with microperforation. Simple appearing density fluid layering in the pelvis possibly reactive slightly larger. Superimposed infection is not excluded. Afebrile. WBC 7.17 PHYSICAL EXAM: VITAL SIGNS: Reviewed. GENERAL: Well-developed in no acute distress. ABDOMEN: Soft. Nondistended. Mild tenderness left lower quadrant NEUROLOGIC: Alert and oriented. Cranial nerves II through XII grossly intact. ASSESSMENT: 1. Acute diverticulitis with microperforation and fluid collection noted on CT PLAN: -CT results reviewed with Dr. Booth. No surgical intervention planned. -Patient can be discharged from surgical standpoint on oral antibiotics -Continue low fiber diet Physician Generation Technician note has been reviewed by physician. Signing provider agrees with the documented findings, assessment, and plan of care. I have personally seen and examined the patient, reviewed the SINKER WINDER /PAs history, exam and MDM and agree with the assessment and plan as written. Based on total visit time, I have performed more than 50% of the visit. As above: CAT scan reviewed. Fluid collection in the pelvis looks more like simple fluid at this time. Patient clinically looks good. I would be comfortable with discharge on oral antibiotics. Follow-up as outpatient. Objective - Vital Signs Vital signs: Vital Signs Temp 97.9 F 04/30/25 07:24 Pulse 73 04/30/25 09:26 Resp 16 04/30/25 09:26 BP 156/75 04/30/25 07:24 Pulse Ox 100 04/30/25 01:59 FiO2 Intake & Output 04/29/25 04/30/25 04/30/25 18:59 06:59 18:59 Intake Total 540 Balance 540 Intake: Oral 540 Other: # Voids 3 4 # Bowel Movements 0 - Labs CBC & Chem 7: 04/30/25 10:34 04/29/25 03:16 Labs: Abnormal Lab Results - Last 24 Hours (Table) 04/30/25 Range/Units 10:34 RBC 3.40 L (4.40-5.60) 10*6/uL Hgb 10.3 L (13.0-17.0) g/dL Hct 31.4 L (39.6-50.0) % Lymphocytes # 0.39 L (0.90-5.00) 10*3/uL
[2025-04-30 14:04] VITALS: BP 135/80; RESP 17; TEMP 98.3
== END 2025-04-30 16:00 | disposition home or self-care (01) | DRG 391 ==
LOC: EC 12:23 → 4SSUR 13:06
PROVIDERS: ADMIT Hospitalist; ATTEND Hospitalist
DX: K57.20 Diverticulitis of large intestine with perforation and abscess without bleeding (principal); N17.0 Acute kidney failure with tubular necrosis; E87.20 Acidosis, unspecified; N18.5 Chronic kidney disease, stage 5; J44.9 Chronic obstructive pulmonary disease, unspecified; E66.01 Morbid (severe) obesity due to excess calories; I15.1 Hypertension secondary to other renal disorders; Q61.3 Polycystic kidney, unspecified; Z68.41 Body mass index [BMI] 40.0-44.9, adult; E86.9 Volume depletion, unspecified; K21.9 Gastro-esophageal reflux disease without esophagitis; E87.5 Hyperkalemia; E86.1 Hypovolemia; E78.5 Hyperlipidemia, unspecified; M1A.9XX0 Chronic gout, unspecified, without tophus (tophi); I25.2 Old myocardial infarction; Z79.82 Long term (current) use of aspirin; Z79.899 Other long term (current) drug therapy; Z87.891 Personal history of nicotine dependence
CPT/HCPCS: 74176; 80048; 80053; 80069; 85025; 85610; 85730; 93005; 94640; 96365; 96375; 99285